=== PATIENT | female | born 1940 | race Caucasian/White ===

== ENCOUNTER → 2020-06-12 09:21 | Outpatient (CLI) | payer MEDICARE, SELFPAY ==
--- NOTE | ~2020-06-12 | MM_ITS ---
EXAMINATION: MM screening honorio BI w nini HISTORY: Screening TECHNIQUE: Craniocaudal and mediolateral oblique 3-D tomosynthesis images were obtained and synthetic 2-D images were generated. CAD analysis was submitted and interpreted. COMPARISON: Comparison to multiple prior studies sequentially, with oldest reviewed study dated 02/10. BREAST PARENCHYMAL COMPOSITION: There are scattered areas of fibroglandular density. FINDINGS: There is no evidence of suspicious mass, calcification, or architectural distortion to sugg est malignancy in either breast. There has been no suspicious interval change. IMPRESSION: 1. No mammographic evidence of malignancy. 2. Recommend routine screening mammography in one year. BI-RADS Category 1: Negative Reviewed, dictated and finalized at location A.
--- NOTE | ~2020-06-12 | DEXA_ITS ---
Bone Density Report Name: Mely Small Age: 79 Sex: Female Ethnicity: White Date of : 1940 Indication: osteopenia; height loss; postmenopausal Referring Provider: Yue Delgadillo Study: Bone densitometry was performed. Exam Date: June 12, 2020 Accession number: [id number] Bone Density: Region BMD T-score Z-score Classification AP Spine (L1-L4) 0.871 -1.6 1.0 Osteopenia Femoral Neck (Left) 0.670 -1.6 0.6 Osteopenia Total Hip (Left) 0.768 -1.4 0.5 Osteopenia Femoral Neck (Right) 0.687 -1.5 0.7 Osteopenia Total Hip (Right) 0.726 -1.8 0.2 Osteopenia Total Hip Mean 0.747 -1.6 0.4 Osteopenia World Health Organization criteria for BMD impression classify patients as: Normal (T-score at or above -1.0), Osteopenia (T-score between -1.0 and -2.5), or Osteoporosis (T-score at or below -2.5). 10-year Fracture Risk(1): Major Osteoporotic Fracture 12% Hip Fracture 3.0% Reported Risk Factors: [place] (), Neck BMD=0.670, BMI=22.4 (1) FRAX(R) Version 3.08. Fracture probability calculated for an untreated patient. Fracture probability may be lower if the patient has received treatment. Previous Exams: Region Exam Age BMD T-score BMD Change BMD Change Date g/cm2 vs Baseline vs Previous AP Spine(L1-L4) 06/12/2020 79 0.871 -1.6 0.014 0.014 12/28/2017 77 0.857 -1.7 Total Hip(Left) 06/12/2020 79 0.768 -1.4 -0.029* -0.029* 12/28/2017 77 0.796 -1.2 Total Hip(Right) 06/12/2020 79 0.726 -1.8 -0.051* -0.051* 12/28/2017 77 0.777 -1.4 *Denotes significance at 95% confidence level, LSC for AP Spine = 0.022 g/cm2, LSC for Total Hip = 0.027 g/cm2 Clinical Information Provided by Patient: Has used the following medications: Vitamin D, Calcium Patient maximum height was 62 Menopause Age: 59 No regular weight bearing exercise Drinks caffeinated beverages Onset of menses at age 13 Number of children 3 Impression: The patient has low bone mass, based on the Right Total Hip T-score. The patient has an estimated ten-year risk of hip fracture of 3% and an estimated ten-year risk of major fracture of 12%, based on the WHO FRAX algorithm. The BMD for the Total Hip(Left) decreased, changing by -0.029 since the last DXA exam. The BMD for the Total Hip(Right) decreased, changing by -0.051 since the last DXA exam. Discussion: BONE DENSITY IS LOW AT ONE OR MORE SKELETAL SITES. THE PA
== END ==
PROVIDERS: PCP Family Medicine; Visit Provider Nurse Practitioner
DX: Z12.31 Encounter for screening mammogram for malignant neoplasm of breast (principal); Z78.0 Asymptomatic menopausal state
CPT/HCPCS: 77063; 77067; 77080

== ENCOUNTER → 2021-08-04 14:13 | Outpatient (CLI) | payer MEDICARE, SELFPAY ==
--- NOTE | ~2021-08-04 | MM_ITS ---
EXAMINATION: MM screening honorio BI w nini HISTORY: Screening TECHNIQUE: Craniocaudal and mediolateral oblique 3-D tomosynthesis images were obtained and synthetic 2-D images were generated. CAD analysis was submitted and interpreted. COMPARISON: Comparison to multiple prior studies sequentially, with oldest reviewed study dated 02/10. BREAST PARENCHYMAL COMPOSITION: Breast composed of scattered areas of fibroglandular density FINDINGS: There is no evidence of suspicious mass, calcification, or architectural distortion to sugg est malignancy in either breast. There has been no suspicious interval change. IMPRESSION: 1. No mammographic evidence of malignancy. 2. Recommend routine screening mammography in one year. BI-RADS Category 1: Negative Reviewed, dictated and finalized at location A. SHOE EXAMINER
== END ==
PROVIDERS: PCP Family Medicine; Visit Provider Nurse Practitioner Family
DX: Z12.31 Encounter for screening mammogram for malignant neoplasm of breast (principal)
CPT/HCPCS: 77063; 77067

== ENCOUNTER 2022-05-05 08:52 | Outpatient (CLI) | payer MEDICARE, SELFPAY ==
[2022-05-05 19:42] LABS: Basophils Absolute Auto 0.1 K/mm3 (0.0-0.1); Basophils Percent Auto 1.2 % (0.2-1.2); Eosinophils Absolute Auto 0.1 K/mm3 (0-0.3); Hematocrit 37.1 % (37.0-47.0); Hemoglobin 10.9 g/dL (12.0-15.0); Immature Granulocyte Absolute 0.01 K/mm3 (0.00-0.031); Immature Granulocyte Percent A 0.2 % (0-0.5); Lymphocytes Absolute Auto 1.23 K/mm3 (0.9-3.2); Lymphocytes Percent Auto 24.2 % (18.3-44.2); Mean Corpuscular HGB Conc 29.4 g/dl (32-36); Mean Corpuscular Hemoglobin 23.1 pg (26-34); Mean Corpuscular Volume 78.6 fl (80-100); Mean Platelet Volume 10.6 fl (7.4-10.4); Monocytes Absolute Auto 0.4 K/mm3 (0.1-0.6); Monocytes Percent Auto 7.1 % (2.6-8.5); Neutrophils Absolute Auto 3.3 K/mm3 (1.3-6.7); Neutrophils Percent Auto 65.3 % (45.5-73.1); Platelet Count Result 311 k/mm3 (150-375); Red Blood Count 4.72 M/mm3 (4.2-5.4); Red Cell Distribution Width 16.9 % (11.5-14.5); White Blood Count 5.1 K/mm3 (4.5-10.0)
[2022-05-05 19:50] LABS: Hypochromasia 1+ (NORMAL); Platelet Estimate Adequate (Adequate)
[2022-05-05 19:51] LABS: Ovalocytes 1+ (NORMAL)
[2022-05-05 20:06] LABS: Vitamin D 25 Hydroxy 82.7 ng/mL
[2022-05-05 20:14] LABS: Alanine Aminotransferase 17 U/L (6-35); Albumin Level 4.3 g/dL (3.5-5.1); Alkaline Phosphatase 109 U/L (38-126); Anion Gap 12 mmol/L (8-16); Aspartate Amino Transferase 37 U/L (14-36); Bilirubin,Total 0.5 mg/dL (0.2-1.3); Blood Urea Nitrogen 19 mg/dL (7-17); Calcium 9.9 mg/dL (8.4-10.2); Carbon Dioxide 26 mmol/L (22-30); Chloride 102 mmol/L (98-107); Cholesterol 214 mg/dL (0-200); Estimated Glomerular Filt Rate > 60; Glucose 92 mg/dL (65-110); HDL Direct 73 mg/dL; Potassium 4.2 mmol/L (3.4-5.0); Sodium 140 mmol/L (137-145); Triglycerides 92 mg/dL (<150)
[2022-05-05 20:26] LABS: LDL Cholesterol Direct 89 mg/dL
== END 2022-05-05 08:53 | disposition home or self-care (01) ==
PROVIDERS: PCP Family Medicine; Visit Provider Nurse Practitioner Family
DX: E78.2 Mixed hyperlipidemia (principal); E78.5 Hyperlipidemia, unspecified; E55.9 Vitamin D deficiency, unspecified; Z00.00 Encounter for general adult medical examination without abnormal findings
CPT/HCPCS: 36415; 80053; 80061; 82306; 84443; 85025

== ENCOUNTER 2022-07-08 00:08 | Day surgery (SDC) | payer MEDICARE, SELFPAY ==
[2022-07-04 14:00] VITALS: BMI 19.9
[2022-07-08 07:39] VITALS: BP 113/62; PULSE 71; RESP 16; TEMP 36.2; O2SAT 100; BMI 19.6
[2022-07-08] MEDS: LACTATED RINGERS 1,000 ML 150 ML IV CONT (07:59)
--- NOTE | 2022-07-08 08:13 | PM.HPGS ---
History of Present Illness History of Present Illness Consent: Risks, benefits, and alternatives have been discussed and questions answered. Patient agrees to proceed with procedure. Chief complaint: hx colon polyps Narrative: Mely Small is a 82 year old female Presents for colonoscopy. She recently has had a 5-6 lb weight loss. She has a history of large colon polyp requiring partial colectomy 2009. She did have a follow-up colonoscopy 2014 with a polyp. She also has been treated for bladder cancer and lung cancer and squamous cell skin cancer. Patient presents today for colonoscopy. Review of Systems Review of Systems: Review of systems noncontributory. [facility] Past Medical History Medical History (Updated 07/08/22 @ 08:15 by Elvin Damian MD) Acute gangrenous cholecystitis Chronic fatigue History of adenocarcinoma of lung (~2016) Hx of bladder cancer (~2013) Mixed hyperlipidemia Neuropathy Obesity, unspecified (03/22/17) Osteopenia Postmenopausal Pulmonary nodule Thrombocytopenia Surgical History Surgical History (Updated 05/05/22 @ 08:25 by Jessica Moeller NP) Hx of cholecystectomy (~06/2019) Family History Family History Sibling Hypertension Family history of lung cancer Mother Family history of diabetes mellitus in first degree relative Diabetes mellitus Social History Social History Social History: -lives alone-3 children and 5 grandchildren. Smoking packs per day: 2 Smoking cigarettes per day: 40.0 Years smoked: 38 Smoking pack-years: 76.00 Smoking status: Never smoker Second hand tobacco smoke exposure: No Smoking end date: 08/28/01 Alcohol intake: never Substance use: never Substance use type: does not use Living arrangements: alone Gender identity (if verbalized by the patient): Female Sexual Orientation (if Verbalized by the Patient): Straight or Heterosexual Spiritual care concerns: No Agree to blood products: Yes Meds Home Medications and Allergies Home Medications Medication Instructions Recorded Confirmed Type aspirin 81 mg chewable tablet 81 mg PO DAILY 06/27/19 07/04/22 History (Aspirin Childrens) calcium carbonate 600 mg calcium 600 mg PO BID 06/27/19 07/04/22 History (1,500 mg) tablet cyanocobalamin (vitamin B-12) 1,000 mcg PO DAILY 06/27/19 07/04/22 History 1,000 mcg tablet cholecalciferol (vitamin D3) 125 125 mcg PO DAILY 10/22/20 07/04/22 History mcg (5,000 unit) capsule fish, borage, flaxseed oils-omega 1 cap PO BID 10/22/20 07/04/22 History 3,6,9 cb #1 400 mg-400 mg-400 mg cap albuterol sulfate 90 mcg/actuation 1 puff inhalation Q4H PRN wheezing 10/28/21 07/04/22 Rx aerosol inhaler (ProAir HFA) or chest tightness #8.5 grams pravastatin 20 mg tablet 20 mg PO DAILY #90 tabs 01/17/22 07/04/22 Rx sodium,potassium,mag sulfates 17.5 See Rx Instructions PO .COMPLEX 05/19/22 Rx gram-3.13 gram-1.6 gram oral soln #354 mL (Suprep Bowel Prep Kit) gabapentin 300 mg capsule 300 mg PO BID 07/04/22 07/04/22 History (Neurontin) Allergies Allergy/AdvReac Type Severity Reaction Status Date / Time atorvastatin Allergy Unknown N/V Verified 07/04/22 13:54 simvastatin Allergy Unknown n/v Verified 07/04/22 13:54 Vital Signs Vital Signs - 24 hr 07/08/22 07:39 Temperature 97.2 F L Pulse Rate 71 Respiratory Rate 16 Blood Pressure 113/62 Pulse Oximetry 100 Oxygen Delivery Room Air Exam Narrative: Physical exam reveals patient to be alert. Vital signs stable. HEENT exam is unremarkable. Patient is anicteric. Lungs are clear to auscultation and percussion. Heart is without murmur or extra sounds. Abdomen bowel sounds are present soft nontender with no organomegaly. Digital external rectal exam is normal. Assessment and Plan Assessment and plan (1) Hx of colectomy:
[2022-07-08 08:39] VITALS: BP 103/53; PULSE 84; RESP 16; O2SAT 97
[2022-07-08 08:49] VITALS: BP 114/65; PULSE 84; RESP 21; O2SAT 100
[2022-07-08 08:59] VITALS: BP 111/59; PULSE 74; RESP 20; O2SAT 100
== END 2022-07-08 09:13 | disposition home or self-care (01) ==
PROVIDERS: PCP Family Medicine; Visit Provider Internal Medicine Gastroenterology
PROC: 0DJD8ZZ Inspection of Lower Intestinal Tract, Via Natural or Artificial Opening Endoscopic (ICD-10-PCS; CPT 45378; principal; 2022-07-08 08:30)
DX: Z12.11 Encounter for screening for malignant neoplasm of colon (principal); K64.8 Other hemorrhoids; Z86.010 Personal history of colon polyps; Z98.0 Intestinal bypass and anastomosis status; Z90.49 Acquired absence of other specified parts of digestive tract; E78.2 Mixed hyperlipidemia; G62.9 Polyneuropathy, unspecified; M85.80 Other specified disorders of bone density and structure, unspecified site; Z85.51 Personal history of malignant neoplasm of bladder; Z85.118 Personal history of other malignant neoplasm of bronchus and lung; Z87.891 Personal history of nicotine dependence; Z79.82 Long term (current) use of aspirin; Z79.51 Long term (current) use of inhaled steroids
CPT/HCPCS: G0105; J2704; J7120

== ENCOUNTER → 2022-08-24 10:57 | Outpatient (CLI) | payer MEDICARE, SELFPAY ==
--- NOTE | ~2022-08-24 | MM_ITS ---
EXAMINATION: MM screening honorio BI w nini HISTORY: Screening mammogram TECHNIQUE: Craniocaudal and mediolateral oblique 3-D tomosynthesis images were obtained and synthetic 2-D images were generated. CAD analysis was submitted and interpreted. COMPARISON: 08/04/2021, 06/12/2020, 05/07/2019 bilateral screening mammogram examinations BREAST PARENCHYMAL COMPOSITION: The breasts are heterogeneously dense, which may obscure small masses . FINDINGS: There is no evidence of suspicious mass, calcification, or architectural distortion to sugg est malignancy in either breast. There has been no suspicious interval change. IMPRESSION: 1. No mammographic evidence of malignancy. 2. Recommend routine screening mammography in one year. BI-RADS Category 1: Negative Reviewed, dictated and finalized at location A. ILLMENT SPECIALIST
== END ==
PROVIDERS: PCP Family Medicine; Visit Provider Nurse Practitioner Family
DX: Z12.31 Encounter for screening mammogram for malignant neoplasm of breast (principal)
CPT/HCPCS: 77063; 77067

== ENCOUNTER → 2022-09-27 10:29 | Outpatient (CLI) | payer MEDICARE, SELFPAY ==
--- NOTE | ~2022-09-27 | DEXA_ITS ---
Bone Density Report Name: ELIUD FIELDS Age: 82 Sex: Female Ethnicity: White Date of : 1940 Indication: osteopenia; height loss; postmenopausal Referring Provider: Jessica Moeller Study: Bone densitometry was performed. Exam Date: September 27, 2022 Accession number: [id number] Bone Density: Region BMD T-score Z-score Classification AP Spine (L1-L4) 0.890 -1.4 1.3 Osteopenia Femoral Neck (Left) 0.631 -2.0 0.4 Osteopenia Total Hip (Left) 0.697 -2.0 0.1 Osteopenia Femoral Neck (Right) 0.581 -2.4 -0.1 Osteopenia Total Hip (Right) 0.621 -2.6 -0.6 Osteoporosis Total Hip Mean 0.659 -2.3 -0.3 Osteopenia World Health Organization criteria for BMD impression classify patients as: Normal (T-score at or above -1.0), Osteopenia (T-score between -1.0 and -2.5), or Osteoporosis (T-score at or below -2.5). 10-year Fracture Risk: FRAX not reported because: Some T-score for Spine Total or Hip Total or Femoral Neck at or below -2.5 Previous Exams: Region Exam Age BMD T-score BMD Change BMD Change Date g/cm2 vs Baseline vs Previous AP Spine(L1-L4) 09/27/2022 82 0.890 -1.4 0.033* 0.019 06/12/2020 79 0.871 -1.6 0.014 0.014 12/28/2017 77 0.857 -1.7 Total Hip(Left) 09/27/2022 82 0.697 -2.0 -0.099* -0.071* 06/12/2020 79 0.768 -1.4 -0.029* -0.029* 12/28/2017 77 0.796 -1.2 Total Hip(Right) 09/27/2022 82 0.621 -2.6 -0.156* -0.105* 06/12/2020 79 0.726 -1.8 -0.051* -0.051* 12/28/2017 77 0.777 -1.4 *Denotes significance at 95% confidence level, LSC for AP Spine = 0.022 g/cm2, LSC for Total Hip = 0.027 g/cm2 Clinical Information Provided by Patient: Has used the following medications: Vitamin D, Calcium Patient maximum height was 62 Menopause Age: 59 No regular weight bearing exercise Drinks caffeinated beverages Onset of menses at age 13 Number of children 2 Impression: The patient has osteoporosis, based on the Right Total Hip T-score. The BMD for the Total Hip(Left) decreased, changing by -0.071 since the last DXA exam. The BMD for the Total Hip(Right) decreased, changing by -0.105 since the last DXA exam. Discussion: INCREASED RISK OF FRACTURE. BONE DENSITY IS UNDESIRABLY LOW AT ONE OR MORE SKELETAL SITES, CONSISTENT WITH POSTMENOPAUSAL OSTEOPOROSIS. This patient's lowest T-score meets the World Health Organization's (WHO) crite
== END ==
PROVIDERS: PCP Family Medicine; Visit Provider Nurse Practitioner Family
DX: Z78.0 Asymptomatic menopausal state (principal); M85.89 Other specified disorders of bone density and structure, multiple sites; M81.0 Age-related osteoporosis without current pathological fracture
CPT/HCPCS: 77080

== ENCOUNTER 2022-11-03 08:34 | Outpatient (CLI) | payer MEDICARE, SELFPAY ==
[2022-11-03 20:42] LABS: Basophils Percent Auto 0.6 % (0.2-1.2); Eosinophils Absolute Auto 0.1 K/mm3 (0-0.3); Eosinophils Percent Auto 1.6 % (0-4.4); Hematocrit 37.4 % (37.0-47.0); Hemoglobin 11.2 g/dL (12.0-15.0); Immature Granulocyte Absolute 0.03 K/mm3 (0.00-0.031); Immature Granulocyte Percent A 0.4 % (0-0.5); Lymphocytes Percent Auto 15.6 % (18.3-44.2); Mean Corpuscular HGB Conc 29.9 g/dl (32-36); Mean Corpuscular Hemoglobin 23.4 pg (26-34); Mean Corpuscular Volume 78.1 fl (80-100); Mean Platelet Volume 10.4 fl (7.4-10.4); Monocytes Absolute Auto 0.4 K/mm3 (0.1-0.6); Monocytes Percent Auto 6.1 % (2.6-8.5); Neutrophils Absolute Auto 5.4 K/mm3 (1.3-6.7); Neutrophils Percent Auto 75.7 % (45.5-73.1); Platelet Count Result 294 k/mm3 (150-375); Red Blood Count 4.79 M/mm3 (4.2-5.4); Red Cell Distribution Width 16.8 % (11.5-14.5); White Blood Count 7.1 K/mm3 (4.5-10.0)
[2022-11-03 20:58] LABS: LDL Cholesterol Direct 84 mg/dL
[2022-11-03 21:00] LABS: Hypochromasia 1+ (NORMAL); Platelet Estimate Adequate (Adequate)
[2022-11-03 21:01] LABS: Ovalocytes 2+ (NORMAL); Schistocytes None Seen (NORMAL)
[2022-11-03 21:08] LABS: Alanine Aminotransferase 17 U/L (6-35); Albumin Level 4.3 g/dL (3.5-5.1); Alkaline Phosphatase 151 U/L (38-126); Anion Gap 5 mmol/L (8-16); Aspartate Amino Transferase 39 U/L (14-36); Bilirubin,Total 0.4 mg/dL (0.2-1.3); Blood Urea Nitrogen 24 mg/dL (7-17); Calcium 9.7 mg/dL (8.4-10.2); Carbon Dioxide 30 mmol/L (22-30); Chloride 101 mmol/L (98-107); Cholesterol 185 mg/dL (0-200); Estimated Glomerular Filt Rate > 60; Glucose 86 mg/dL (65-110); HDL Direct 72 mg/dL; Potassium 4.5 mmol/L (3.4-5.0); Sodium 136 mmol/L (137-145); Triglycerides 57 mg/dL (<150)
== END 2022-11-03 08:35 | disposition home or self-care (01) ==
LOC: ANHGOSHLAB 08:36
PROVIDERS: PCP Family Medicine; Visit Provider Nurse Practitioner Family
DX: E78.5 Hyperlipidemia, unspecified (principal); I10 Essential (primary) hypertension
CPT/HCPCS: 36415; 80053; 80061; 85025

== ENCOUNTER 2023-01-27 20:11 | Emergency (ER) | payer MEDICARE, SELFPAY ==
[2023-01-27] VITALS (13 sets, daily range): BP systolic 106–144; BP diastolic 64–88; PULSE 98; RESP 18; TEMP 36.6; O2SAT 96–100
[2023-01-27 21:08] LABS: Basophils Percent Auto 0.3 % (0.2-1.2); Hematocrit 36.3 % (37.0-47.0); Hemoglobin 10.6 g/dL (12.0-15.0); Immature Granulocyte Absolute 0.03 K/mm3 (0.00-0.031); Immature Granulocyte Percent A 0.4 % (0-0.5); Lymphocytes Percent Auto 6.3 % (18.3-44.2); Mean Corpuscular HGB Conc 29.2 g/dl (32-36); Mean Corpuscular Hemoglobin 22.7 pg (26-34); Mean Corpuscular Volume 77.9 fl (80-100); Mean Platelet Volume 10.2 fl (7.4-10.4); Monocytes Absolute Auto 0.2 K/mm3 (0.1-0.6); Monocytes Percent Auto 2.7 % (2.6-8.5); Neutrophils Absolute Auto 7.2 K/mm3 (1.3-6.7); Neutrophils Percent Auto 90.3 % (45.5-73.1); Platelet Count Result 281 k/mm3 (150-375); Red Blood Count 4.66 M/mm3 (4.2-5.4); Red Cell Distribution Width 16.2 % (11.5-14.5); White Blood Count 7.9 K/mm3 (4.5-10.0)
[2023-01-27 21:32] LABS: Alanine Aminotransferase 19 U/L (6-35); Albumin Level 4.5 g/dL (3.5-5.1); Alkaline Phosphatase 98 U/L (38-126); Anion Gap 10 mmol/L (8-16); Aspartate Amino Transferase 28 U/L (14-36); Bilirubin,Total 0.5 mg/dL (0.2-1.3); Blood Urea Nitrogen 16 mg/dL (7-17); Carbon Dioxide 26 mmol/L (22-30); Chloride 101 mmol/L (98-107); Estimated CRCL calculation 37 ml/min; Estimated Glomerular Filt Rate > 60; Glucose 161 mg/dL (65-110); Lipase 41 U/L (23-300); Potassium 4.3 mmol/L (3.4-5.0); Sodium 137 mmol/L (137-145)
[2023-01-27 21:58] LABS: Platelet Estimate Adequate (Adequate)
[2023-01-27 21:59] LABS: Hypochromasia 1+ (NORMAL); Schistocytes None Seen (NORMAL)
[2023-01-27 22:00] LABS: Anisocytosis 2+ (NORMAL)
[2023-01-27] MEDS: ONDANSETRON INJ 4 MG/2 ML VIAL IV PUSH (22:13)
[2023-01-27] MEDS: SODIUM CHLORIDE 0.9% IV 1,000 ML 999 ML IV CONT (22:13)
[2023-01-27 22:48] LABS: Magnesium 2.2 mg/dL (1.6-2.3)
[2023-01-27 22:50] LABS: Lactic Acid Reflex 0.9 mmol/L (0.7-2.0)
[2023-01-27 23:03] LABS: Strep Group A RT-PCR NOT DETECTED (Negative)
[2023-01-27 23:14] LABS: Influenza A QL RT-PCR Negative (Negative); Influenza B QL RT-PCR Negative (Negative); SARS-CoV-2 RNA PCR Negative (Negative)
--- NOTE | 2023-01-27 23:19 | PC.NURSE ---
This RN assumed care of patient.
[2023-01-27 23:35] LABS: Appearance Urine Cloudy (Clear); Bacteria Urine 4+ /hpf; Bilirubin Urine Negative (Negative); Blood Urine 1+ (Negative); Color Urine Yellow (Yellow); Glucose Urine UA Negative (Negative); Ketones Urine 2+ mg/dL (Negative); Leukocyte Esterase Ur 3+ LEU/UL (Negative); Nitrate Urine Positive (Negative); Protein Urine Trace mg/dL (Negative); RBC Urine 0-2 /hpf (0-2); Specific Grav Ur 1.015 (1.001-1.035); Squamous Epithelial Cell Urine Occasional /hpf (Few); Urobilinogen Urine 0.2 mg/dL (<2.0); WBC Urine >100 /hpf; pH Urine 6.5 (5.0-9.0)
[2023-01-27 23:50] LABS: Add Urine Microscopic? YES
--- NOTE | 2023-01-28 00:30 | ED.GENADULT ---
HPI - General Adult General Chief complaint: Nausea/Vomiting/Diarrhea Stated complaint: nausea/vomiting x 2 days, weakness Time Seen by Provider: 01/27/23 21:55 History of Present Illness HPI narrative: Patient is a 82-year-old female who presents the emergency department with chief complaint of nausea and vomiting for 2 days. Patient states that she feels extremely dehydrated and feels very weak afterwards. The patient denies any abdominal pain denies diarrhea reports that her abdomen is not distended and reports that she was given a dose of Zofran that did help some but she still had some vomiting. The patient states that she feels exhausted from all the vomiting denies fever denies any new medications denies any recent travel or recent antibiotic. Related Data Home Medications Medication Instructions Recorded Confirmed aspirin 81 mg chewable tablet 81 mg PO DAILY 06/27/19 11/03/22 (Aspirin Childrens) calcium carbonate 600 mg calcium 600 mg PO BID 06/27/19 11/03/22 (1,500 mg) tablet cyanocobalamin (vitamin B-12) 1,000 mcg PO DAILY 06/27/19 11/03/22 1,000 mcg tablet cholecalciferol (vitamin D3) 125 125 mcg PO DAILY 10/22/20 11/03/22 mcg (5,000 unit) capsule fish, borage, flaxseed oils-omega 1 cap PO BID 10/22/20 11/03/22 3,6,9 cb #1 400 mg-400 mg-400 mg cap Allergies Allergy/AdvReac Type Severity Reaction Status Date / Time atorvastatin Allergy Unknown N/V Verified 01/27/23 20:12 simvastatin Allergy Unknown n/v Verified 01/27/23 20:12 Review of Systems Review of Systems: A 10 system review of systems was completed on the patient and is negative except for what is stated in the HPI. Nursing and ancillary documentation was reviewed. [facility] Past Medical History Medical History Acute gangrenous cholecystitis Chronic fatigue History of adenocarcinoma of lung (~2016) Hx of bladder cancer (~2013) Mixed hyperlipidemia Neuropathy Obesity, unspecified (03/22/17) Osteopenia Osteoporosis Postmenopausal Pulmonary nodule Thrombocytopenia Surgical History Surgical History Hx of cholecystectomy (~06/2019) Family History Family History Sibling Hypertension Family history of lung cancer Mother Family history of diabetes mellitus in first degree relative Diabetes mellitus Social History Social History Social History: -lives alone-3 children and 5 grandchildren. Smoking packs per day: 2 Smoking cigarettes per day: 40.0 Years smoked: 38 Smoking pack-years: 76.00 Smoking status: Never smoker Second hand tobacco smoke exposure: No Smoking end date: 08/28/01 Alcohol intake: never Substance use: never Substance use type: does not use Lack of Transportation: No Lack of Food: Never True Current Housing: I Have Housing Concerned About Future Housing: No Difficulty Paying Gas/Electric Bills: No Difficulty Paying for Meds: No Currently Unemployed: No Education: High School Diploma/GED Difficulty w/ Childcare or Family Care: No Living arrangements: alone Occupation/Education: retired Gender identity (if verbalized by the patient): Female Sexual Orientation (if Verbalized by the Patient): Straight or Heterosexual Spiritual care concerns: No Agree to blood products: Yes Exam Narrative: GENERAL: Well-appearing, well-nourished, and in no acute distress. HEAD: Normocephalic, atraumatic. EYES: PERRLA and EOMI. ENT: Nares clear, no rhinorrhea or epistaxis. Dry mucous membranes . NECK: Supple. CHEST: Clear to auscultation. No respiratory distress. HEART: Regular rate and rhythm. No murmur heard. Normal peripheral pulses. ABDOMEN: Soft, nontender, nondistended, normal active bowel sounds. EXTRE
[2023-01-28] MEDS: ONDANSETRON INJ 4 MG/2 ML VIAL IV PUSH (00:41)
[2023-01-28] MEDS: CEPHALEXIN 500 MG CAPSULE PO (00:41)
== END 2023-01-28 01:06 | disposition home or self-care (01) ==
PROVIDERS: Emergency Provider Emergency Medicine; PCP Family Medicine
DX: N39.0 Urinary tract infection, site not specified (principal); R11.2 Nausea with vomiting, unspecified; Z20.822 Contact with and (suspected) exposure to COVID-19; E78.2 Mixed hyperlipidemia; G62.9 Polyneuropathy, unspecified; M85.80 Other specified disorders of bone density and structure, unspecified site; M81.0 Age-related osteoporosis without current pathological fracture; Z85.118 Personal history of other malignant neoplasm of bronchus and lung; Z85.51 Personal history of malignant neoplasm of bladder; Z90.49 Acquired absence of other specified parts of digestive tract; Z87.891 Personal history of nicotine dependence
CPT/HCPCS: 36415; 80053; 81001; 83605; 83690; 83735; 85025; 87077; 87086; 87186; 87636; 87651; 96361; 96374; 96376; 99284; A9270; J2405; J7030

== ENCOUNTER 2023-01-28 19:10 | Emergency (ER) | payer MEDICARE, SELFPAY ==
[2023-01-28] VITALS (11 sets, daily range): BP systolic 127–141; BP diastolic 66–81; PULSE 75–85; RESP 12–19; TEMP 36.3–36.7; O2SAT 96–100
[2023-01-28] MEDS: methylPREDNISolone SOD SUCC 125 MG VIAL IV PUSH (20:24)
[2023-01-28] MEDS: diphenhydrAMINE HCl INJ 50 MG/ML VIAL 25 MG IV PUSH (20:26)
[2023-01-28] MEDS: FAMOTIDINE 20 MG/2 ML VIAL IV PUSH (20:27)
--- NOTE | 2023-01-28 22:13 | ED.GENADULT ---
HPI - General Adult General Chief complaint: Allergic Reaction Stated complaint: allergic reaction Time Seen by Provider: 01/28/23 19:54 History of Present Illness HPI narrative: Patient 82-year-old female who presents the emergency department with chief complaint of allergic reaction. Patient was seen in the emergency department last night for nausea vomiting diarrhea and was found to have a UTI. The patient was started on oral Keflex he was also given a prescription for Phenergan suppositories. Patient states that today she has felt a little nauseated and then had took her dose of antibiotic and when she took a dose of antibiotic she noticed that she developed a rash in the left side of her face and reported that she felt as though her throat was getting Related Data Home Medications Medication Instructions Recorded Confirmed aspirin 81 mg chewable tablet 81 mg PO DAILY 06/27/19 11/03/22 (Aspirin Childrens) calcium carbonate 600 mg calcium 600 mg PO BID 06/27/19 11/03/22 (1,500 mg) tablet cyanocobalamin (vitamin B-12) 1,000 mcg PO DAILY 06/27/19 11/03/22 1,000 mcg tablet cholecalciferol (vitamin D3) 125 125 mcg PO DAILY 10/22/20 11/03/22 mcg (5,000 unit) capsule fish, borage, flaxseed oils-omega 1 cap PO BID 10/22/20 11/03/22 3,6,9 cb #1 400 mg-400 mg-400 mg cap Allergies Allergy/AdvReac Type Severity Reaction Status Date / Time atorvastatin Allergy Unknown N/V Verified 01/27/23 20:12 simvastatin Allergy Unknown n/v Verified 01/27/23 20:12 Review of Systems Review of Systems: A 10 system review of systems was completed on the patient and is negative except for what is stated in the HPI. Nursing and ancillary documentation was reviewed. [facility] Past Medical History Medical History Acute gangrenous cholecystitis Chronic fatigue History of adenocarcinoma of lung (~2016) Hx of bladder cancer (~2013) Mixed hyperlipidemia Neuropathy Obesity, unspecified (03/22/17) Osteopenia Osteoporosis Postmenopausal Pulmonary nodule Thrombocytopenia Surgical History Surgical History Hx of cholecystectomy (~06/2019) Family History Family History Sibling Hypertension Family history of lung cancer Mother Family history of diabetes mellitus in first degree relative Diabetes mellitus Social History Social History Social History: -lives alone-3 children and 5 grandchildren. Smoking packs per day: 2 Smoking cigarettes per day: 40.0 Years smoked: 38 Smoking pack-years: 76.00 Smoking status: Never smoker Second hand tobacco smoke exposure: No Smoking end date: 08/28/01 Alcohol intake: never Substance use: never Substance use type: does not use Lack of Transportation: No Lack of Food: Never True Current Housing: I Have Housing Concerned About Future Housing: No Difficulty Paying Gas/Electric Bills: No Difficulty Paying for Meds: No Currently Unemployed: No Education: High School Diploma/GED Difficulty w/ Childcare or Family Care: No Living arrangements: alone Occupation/Education: retired Gender identity (if verbalized by the patient): Female Sexual Orientation (if Verbalized by the Patient): Straight or Heterosexual Spiritual care concerns: No Agree to blood products: Yes Exam Narrative: GENERAL: Well-appearing, well-nourished, and in no acute distress. HEAD: Normocephalic, atraumatic. EYES: PERRLA and EOMI. ENT: Nares clear, no rhinorrhea or epistaxis. Mucous membranes moist. NECK: Supple. CHEST: Clear to auscultation. No respiratory distress. HEART: Regular rate and rhythm. No murmur heard. Normal peripheral pulses. ABDOMEN: Soft, nontender, nondistended, normal active bowel sounds.
== END 2023-01-28 22:47 | disposition home or self-care (01) ==
PROVIDERS: Emergency Provider Emergency Medicine; PCP Family Medicine
DX: T78.40XA Allergy, unspecified, initial encounter (principal); N39.0 Urinary tract infection, site not specified; E78.2 Mixed hyperlipidemia; M81.0 Age-related osteoporosis without current pathological fracture; G62.9 Polyneuropathy, unspecified; Z85.51 Personal history of malignant neoplasm of bladder; Z85.118 Personal history of other malignant neoplasm of bronchus and lung; Z87.891 Personal history of nicotine dependence; Z79.82 Long term (current) use of aspirin
CPT/HCPCS: 96374; 96375; 96376; 99284; A9270; J1200; J2405; J2930

== ENCOUNTER 2023-05-11 08:23 | Outpatient (CLI) | payer MEDICARE, SELFPAY ==
[2023-05-11 11:40] LABS: Basophils Absolute Auto 0.1 K/mm3 (0.0-0.1); Basophils Percent Auto 0.8 % (0.2-1.2); Eosinophils Absolute Auto 0.1 K/mm3 (0-0.3); Hematocrit 35.1 % (37.0-47.0); Hemoglobin 10.3 g/dL (12.0-15.0); Immature Granulocyte Absolute 0.02 K/mm3 (0.00-0.031); Immature Granulocyte Percent A 0.3 % (0-0.5); Lymphocytes Absolute Auto 0.39 K/mm3 (0.9-3.2); Lymphocytes Percent Auto 6.3 % (18.3-44.2); Mean Corpuscular HGB Conc 29.3 g/dl (32-36); Mean Corpuscular Hemoglobin 22.3 pg (26-34); Mean Corpuscular Volume 76.1 fl (80-100); Mean Platelet Volume 10.5 fl (7.4-10.4); Monocytes Absolute Auto 0.5 K/mm3 (0.1-0.6); Monocytes Percent Auto 7.6 % (2.6-8.5); Neutrophils Absolute Auto 5.2 K/mm3 (1.3-6.7); Platelet Count Result 231 k/mm3 (150-375); Red Blood Count 4.61 M/mm3 (4.2-5.4); Red Cell Distribution Width 16.4 % (11.5-14.5); White Blood Count 6.2 K/mm3 (4.5-10.0)
[2023-05-11 11:47] LABS: Alanine Aminotransferase 16 U/L (6-35); Albumin Level 4.1 g/dL (3.5-5.1); Alkaline Phosphatase 67 U/L (38-126); Anion Gap 7 mmol/L (8-16); Aspartate Amino Transferase 43 U/L (14-36); Bilirubin,Total 0.8 mg/dL (0.2-1.3); Blood Urea Nitrogen 21 mg/dL (7-17); Calcium 9.3 mg/dL (8.4-10.2); Carbon Dioxide 27 mmol/L (22-30); Chloride 102 mmol/L (98-107); Cholesterol 202 mg/dL (0-200); Estimated Glomerular Filt Rate > 60; Glucose 94 mg/dL (65-110); HDL Direct 74 mg/dL; Potassium 4.4 mmol/L (3.4-5.0); Sodium 136 mmol/L (137-145); Triglycerides 66 mg/dL (<150)
[2023-05-11 11:58] LABS: LDL Cholesterol Direct 96 mg/dL
[2023-05-11 14:28] LABS: Vitamin D 25 Hydroxy 92.5 ng/mL
== END 2023-05-11 08:24 | disposition home or self-care (01) ==
PROVIDERS: PCP Family Medicine; Visit Provider Nurse Practitioner Family
DX: I10 Essential (primary) hypertension (principal); Z13.29 Encounter for screening for other suspected endocrine disorder; D69.6 Thrombocytopenia, unspecified; Z13.21 Encounter for screening for nutritional disorder; Z13.220 Encounter for screening for lipoid disorders
CPT/HCPCS: 36415; 80053; 80061; 82306; 84443; 85025

== ENCOUNTER 2023-11-09 08:35 | Outpatient (CLI) | payer MEDICARE, SELFPAY ==
[2023-11-09 12:49] LABS: Basophils Percent Auto 0.7 % (0.2-1.2); Eosinophils Absolute Auto 0.2 K/mm3 (0-0.3); Eosinophils Percent Auto 3.1 % (0-4.4); Hematocrit 41.8 % (37.0-47.0); Immature Granulocyte Absolute 0.02 K/mm3 (0.00-0.031); Immature Granulocyte Percent A 0.4 % (0-0.5); Lymphocytes Absolute Auto 1.09 K/mm3 (0.9-3.2); Lymphocytes Percent Auto 19.9 % (18.3-44.2); Mean Corpuscular HGB Conc 31.1 g/dl (32-36); Mean Corpuscular Hemoglobin 27.8 pg (26-34); Mean Corpuscular Volume 89.5 fl (80-100); Mean Platelet Volume 10.8 fl (7.4-10.4); Monocytes Absolute Auto 0.5 K/mm3 (0.1-0.6); Monocytes Percent Auto 8.4 % (2.6-8.5); Neutrophils Absolute Auto 3.7 K/mm3 (1.3-6.7); Neutrophils Percent Auto 67.5 % (45.5-73.1); Platelet Count Result 199 k/mm3 (150-375); Red Blood Count 4.67 M/mm3 (4.2-5.4); Red Cell Distribution Width 13.8 % (11.5-14.5); White Blood Count 5.5 K/mm3 (4.5-10.0)
[2023-11-09 12:52] LABS: Alanine Aminotransferase 20 U/L (6-35); Alkaline Phosphatase 82 U/L (38-126); Anion Gap 1 mmol/L (8-16); Aspartate Amino Transferase 50 U/L (14-36); Bilirubin,Total 0.6 mg/dL (0.2-1.3); Blood Urea Nitrogen 17 mg/dL (7-17); Calcium 9.6 mg/dL (8.4-10.2); Carbon Dioxide 33 mmol/L (22-30); Chloride 104 mmol/L (98-107); Cholesterol 180 mg/dL (0-200); Estimated Glomerular Filt Rate > 60; Glucose 87 mg/dL (65-110); HDL Direct 73 mg/dL; Potassium 4.1 mmol/L (3.4-5.0); Sodium 138 mmol/L (137-145); Triglycerides 68 mg/dL (<150)
[2023-11-09 13:03] LABS: LDL Cholesterol Direct 92 mg/dL
[2023-11-09 13:34] LABS: Hemoglobin A1C 5.8 % (<5.7)
== END 2023-11-09 08:36 | disposition home or self-care (01) ==
LOC: ANHGOSHLAB 08:38
PROVIDERS: PCP Family Medicine; Visit Provider Nurse Practitioner Family
DX: R73.03 Prediabetes (principal); D69.6 Thrombocytopenia, unspecified; E78.5 Hyperlipidemia, unspecified
CPT/HCPCS: 36415; 80053; 80061; 83036; 85025

== ENCOUNTER 2024-05-10 09:33 | Outpatient (CLI) | payer MEDICARE, SELFPAY ==
[2024-05-10 15:38] LABS: Basophils Percent Auto 0.8 % (0.2-1.2); Eosinophils Absolute Auto 0.1 K/mm3 (0-0.3); Eosinophils Percent Auto 2.8 % (0-4.4); Hematocrit 40.3 % (37.0-47.0); Hemoglobin 12.8 g/dL (12.0-15.0); Immature Granulocyte Absolute 0.01 K/mm3 (0.00-0.031); Immature Granulocyte Percent A 0.2 % (0-0.5); Lymphocytes Absolute Auto 1.07 K/mm3 (0.9-3.2); Lymphocytes Percent Auto 21.1 % (18.3-44.2); Mean Corpuscular HGB Conc 31.8 g/dl (32-36); Mean Corpuscular Hemoglobin 28.7 pg (26-34); Mean Corpuscular Volume 90.4 fl (80-100); Mean Platelet Volume 11.1 fl (7.4-10.4); Monocytes Absolute Auto 0.4 K/mm3 (0.1-0.6); Monocytes Percent Auto 8.7 % (2.6-8.5); Neutrophils Absolute Auto 3.4 K/mm3 (1.3-6.7); Neutrophils Percent Auto 66.4 % (45.5-73.1); Platelet Count Result 183 k/mm3 (150-375); Red Blood Count 4.46 M/mm3 (4.2-5.4); Red Cell Distribution Width 13.6 % (11.5-14.5); White Blood Count 5.1 K/mm3 (4.5-10.0)
[2024-05-10 15:56] LABS: Hemoglobin A1C 5.8 % (<5.7)
[2024-05-10 16:13] LABS: Vitamin D 25 Hydroxy 69.7 ng/mL
[2024-05-10 16:19] LABS: Alanine Aminotransferase 15 U/L (6-35); Albumin Level 4.1 g/dL (3.5-5.1); Alkaline Phosphatase 94 U/L (38-126); Anion Gap 7 mmol/L (4-12); Aspartate Amino Transferase 49 U/L (14-36); Bilirubin,Total 0.5 mg/dL (0.2-1.3); Blood Urea Nitrogen 25 mg/dL (7-17); Calcium 9.3 mg/dL (8.4-10.2); Carbon Dioxide 31 mmol/L (22-30); Chloride 101 mmol/L (98-107); Cholesterol 178 mg/dL (0-200); Estimated Glomerular Filt Rate > 60; Glucose 87 mg/dL (65-110); HDL Direct 76 mg/dL; Potassium 4.3 mmol/L (3.4-5.0); Sodium 139 mmol/L (137-145); Triglycerides 52 mg/dL (<150)
[2024-05-10 16:33] LABS: LDL Cholesterol Direct 83 mg/dL
== END 2024-05-10 09:34 | disposition home or self-care (01) ==
PROVIDERS: PCP Family Medicine; Visit Provider Nurse Practitioner Family
DX: R73.03 Prediabetes (principal); E78.2 Mixed hyperlipidemia; E55.9 Vitamin D deficiency, unspecified
CPT/HCPCS: 36415; 80053; 80061; 82306; 83036; 85025

== ENCOUNTER 2024-11-08 09:16 | Outpatient (CLI) | payer MEDICARE, SELFPAY ==
--- OUTSIDE RECORDS SUMMARY | 2024-11-08 09:47 | XMS_ITS | Encounter Summary ---
Author Organization [facility] Address [address] [place] [address] Care Team Providers Care Six Horse Hitch Driver Name Role Phone Valery Walter MD Primary Care Provider Unavail able Encounter Details Date Type Department Care Team (Late st Contact Info) Description 12/03/2007 Orders Only [facility] Family Medicine [facility] [address] [address] [address] [place] [address] Paige Prado MD [address] [place] [id number] Social History Tobacco Use Types Packs/Day Years Used Date Smoking Tobacco: Never Assessed Comments Unknown Sex and Gender Information Value Date Recorded Sex Assigned at Not on file 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 [employer] Gender Identity Not on file Sexual Orientation Not on file documented as of this encounter Progress Notes * Paige Prado MD - 02/01/2008 9:34 AM CDT TIME:09:42 am PATIENT`S HOME PHONE: PATIENT`S WORK PHONE: PATIENT`S INSURANCE: MEDICARE WHO TOOK THE CALL: Brigitte Diaz L GENERAL INFORMATION PATIENT STATUS: Established Patient. LAST VISIT: [id number] PCP: WHO CALLED: Patient called. ALTERNATIVE PHONE NUMBER: [phone] CURRENT ALLERGY LIST: [facility] NUMBER: [phone] SECTION 1: REQUESTED ACTION pruivl 12/03/07 at 09:42 am: MEDICATION REQUEST: MEDICATIONS: pt would like generic, pt is leaving and would like this refilled before 1100am please, she is going out of town PRAVACHOL ORAL TABLET 40 MG, one tab po qday, 30 Dispensed, 5 Fills, 30 Duration/Days Supply, status: CONTINUED, 11/26/2007. DOCTOR`S RESPONSE: khris 12/03/07 at 09:47 am DOCTOR`S OTHER RESPONSE: I do not know this patient. FINAL ACTION: lohajd 12/03/07 at 09:53 am Called pharmacy at 12/03/07 at 09:53 am. Eve pt. Refill called into pharm. Pt advised she had refills...mery 12/03/07 at 12:05 Brown covering for Eve. Above noted. Will leave note open for Dr. Prado's review. DB documented in this encounter Plan of Treatment Not on file documented as of this encounter Visit Diagnoses Not on filedocumented in this encounter Care Teams Six Horse Hitch Driver Relationship Specialty Start Date End Date Valery Walter MD NO ADDRESS ON FILE PCP - General 05/26/06 08/05/19 documented as of this encounter
--- OUTSIDE RECORDS SUMMARY | 2024-11-08 09:47 | XMS_ITS | Referral Summary ---
Author Organization [facility] [place] Address [address] [place] [address] Care Team Providers Care Gas Well Drilling Manager Name Role Phone Anamika South NP Primary Care Provider + Allergies Active Allergy Reactions Criticality Noted Date Comments Atorvastatin Vomiting,Nausea And Vomiting Low 02/18 Simvastatin Nausea & Vomiting,Nausea And Vomiting Low 02/18/2009 Medications Rb-N3-nhh-zinc-co y-tyhl-psjdv 600 mg calcium- 800 unit-40 mg tablet,chewable 2 times a day Active clobetasol (TEMOVATE) 0.05 % cream 2 (two) times a day as needed. Active flaxseed oil 1,000 mg capsule 2 (two) times a day. Active gabapentin (NEURONTIN) 300 mg capsuleIndication s:Neuropathic Pain 1 capsule (300 mg total) nightly 0 01/30/20 18 Active gabapentin (NEURONTIN) 100 mg capsule TAKE 1 CAPSULE in the morning for pain Active omega-3 fatty acids-fish oil 684-1,200 mg capsule,delayed release(DR/EC) [place] 3, 6, 9 BID for supplement Active pravastatin (PRAVACHOL) 20 mg tabletIndications :hyperlipidemia 1 tablet (20 mg total) nightly 1 01/30/20 18 Active riboflavin, vitamin B2, 50 mg tablet nightly. Active cholecalciferol (VITAMIN D-3) 2,000 unit tabletIndications :Osteoporosis nightly. Active ipratropium-albut miguel (COMBIVENT RESPIMAT) 20-100 mcg/actuation inhalerIndication s:Chronic Obstructive Pulmonary Disease with Bronchospasms Inhale 1 puff 4 (four) times a day. 4 g 1 02/24/20 18 Active Additional Information Patient not taking.Reported on 12/11/2020 aspirin 81 mg tabletIndications :prevention of thrombosis Take 1 tablet (81 mg total) by mouth nightly Active acetaminophen 500 mg capsuleIndication s:Pain Take 2 capsules (1,000 mg total) by mouth every 6 (six) hours. 30 tablet 03/09/20 18 Active traMADol (ULTRAM) 50 mg tablet Take 1 tablet (50 mg total) by mouth every 6 (six) hours as needed for pain. 03/09/20 18 Active Additional Information Patient not taking.Reported on 12/09/2022 polyethylene glycol (MIRALAX) 17 gram packet Take 1 packet (17 g total) by mouth daily. This medication can be found over the counter, please follow the instructions listed on the packaging. 03/10/20 18 Active Additional Information Patient not taking.Reported on 12/09/2022 senna-docusate (PERICOLACE) 8.6-50 mg Take 1 tablet by mouth 2 (two) times a day. Until first bowel movement, or until pain medication is stopped. 03/09/20 18 Active Additional Information Patient not taking.Reported on 12/09/2022 cyanocobalamin, vitamin B-12, (VITAMIN B-12 ORAL) Take by mouth daily. Active aspirin-calcium carbonate 81 mg-300 mg calcium(777 mg) tablet Take 81 mg by mouth. Active ciprofloxacin (CIPRO) 500 mg tablet 0 06/29/20 18 Active LIEOL-3S-TLF-EPA- FISH OIL-D3 ORAL Take by mouth. Active albuterol HFA (PROVENTIL HFA,VENTOLIN HFA,PROAIR HFA) 90 mcg/actuation inhaler 10/29/19 22 Active alendronate (FOSAMAX) 70 mg tablet Take 1 tablet (70 mg total) by mouth once a week 09/29/19 23 Active Active Problems Problem Noted Date Diagnosed Date Mass of upper lobe of right lung 03/01/2018 Overview (03/01/2018): Added automatically from request for surgery [id number] Lung cancer 02/20/2018 Choledocholithiasis 01/08/2018 Abnormal findings on imaging of biliary tract Abnormal findings on diagnos tic imaging of liver and biliary tract 06/29/2017 Malignant neoplasm of urinary bladder 03/03/2014 Hematuria 03/03/2014 Social History Tobacco Use Types Packs/Day Years Used Date Smoking Tobacco: Former Cigarettes 2 38 0 08/28/1961 - 08/28/1999 Smokeless Tobacco: Never Alcohol Use Standard Drinks/Week Comments Yes 0 (1 standard drink = 0.6 oz pur e alcohol) Occassional glass of wine. 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 Gender Identity Female 12/09/2020 1:34 PM CDT Sexual Orientation Straight 12/09/2020 1 :34 PM CDT Last Filed Vital Signs Vital Sign Reading Time Taken Comments Blood Pressure 117/72 12/09/2022 8:41 AM CDT Pulse 85 12/09/2022 8:41 AM CDT Temperature 36.4 C (97.6 F) 12/09/2022 8:41 AM CDT Respiratory Rate 18 12/09/2022 8:41 AM CDT Oxygen Saturation 98% 12/09/2022 8:41 AM CDT Inhaled Oxygen Concentration - - Weight 46.4 kg (102 lb 3.2 oz) 12/09/2022 8:41 A M CDT Height 152.4 cm (5') 12/09/2022 8:41 AM CDT Body Mass Index 19.96 12/09/2022 8:41 AM CDT Plan of Treatment Not on file Insurance MEDICARE [facility] MEDICARE [facility] MEDICARE [facility] Advance Directives For more information, please contact: [phone] * Full Code (Latest Code Status on File) Date Activated Date Inactivated Comments 03/05/2018 12:43 PM 03/09/2018 5:55 PM Care Teams Gas Well Drilling Manager Relationship Specialty Start Date End Date Anamika South NP [facility] [address] TADEO [address] [place] [id number] PCP - General Nurse Practitioner 11/28/23
--- OUTSIDE RECORDS SUMMARY | 2024-11-08 09:47 | XMS_ITS | Encounter Summary ---
Author Organization [facility] Address [address] [place] [address] Care Team Providers Care Cabinet Finisher Name Role Phone Valery Walter MD Primary Care Provider Unavail able Encounter Details Date Type Department Care Team (Late st Contact Info) Description 11/07/2007 Outpatient Historical [facility] Family Medicine Cassandra Navin [address] [facility] [address] [place] [address] [place] [address] [facility] [address] [place] [address] Social History Tobacco Use Types Packs/Day Years Used Date Smoking Tobacco: Never Assessed Comments Unknown Sex and Gender Information Value Date Recorded Sex Assigned at Not on file 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
--- OUTSIDE RECORDS SUMMARY | 2024-11-08 09:47 | XMS_ITS | Encounter Summary ---
Author Organization [facility] Address [address] [place] [address] Care Team Providers Care Aerologist Name Role Phone Valery Walter MD Primary Care Provider Unavail able Encounter Details Date Type Department Care Team (Late st Contact Info) Description 04/25/2005 Outpatient Historical [facility] Family Medicine [facility] [address] [facility] [address] [place] [address] Magdi Calderón Social History Tobacco Use Types Packs/Day Years Used Date Smoking Tobacco: Never Assessed Comments Unknown Sex and Gender Information Value Date Recorded Sex Assigned at Not on file 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
--- OUTSIDE RECORDS SUMMARY | 2024-11-08 09:47 | XMS_ITS | Encounter Summary ---
Author Organization [facility] Address [address] [facility] Attn: [place] [address] Care Team Providers Care Supervisor Steno Pool Name Role Phone Valery Walter MD Primary Care Provider Unavail able Encounter Details Date Type Department Care Team (Latest Contact Info) Description 07/17/2006 Orders Only Paige Prado MD [address] [place] [id number] Social History Tobacco Use Types Packs/Day Years Used Date Smoking Tobacco: Never Assessed Comments Unknown Sex and Gender Information Value Date Recorded Sex Assigned at Not on file 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 BLOOD PRESSURE: 120/72. Left Arm Sitting PULSE: 74. Left Radial, Regular ALLERGIES: No known drug allergies. CHIEF COMPLAINT Med refill HISTORY: HISTORY: 272.4-HYPERLIPIDEMIA The patient has gained weight. The patient is somewhat compliant with the low saturated fat diet. The patient`s exercise is the same. The medication was discontinued by the patient because of nausea. she stopped the medication 3 times, the nausea went away every time and then restarted and nausea returned. Patient finished 26/30 pills. Patient brought copies of old medical records from Dr. Laboy. She gave MA info to copy and scan into emr. ROS: GENERAL: Normal activity and energy level, no change in appetite. No major weight gain or loss. No malaise, chills, fever, diaphoresis. CARDIAC: No chest pain, palpitations, orthopnea, dyspnea on exertion, or paroxysmal nocturnal dyspnea. RESPIRATORY: No dyspnea, cough, hemoptysis or wheezing. : No frequency, urgency, hematuria or dysuria. GI: See HISTORY OF PRESENT ILLNESS. PSYCHIATRIC: No increased nervousness, mood changes or depression. Coping well. Patient's history reviewed; no changes. PHYSICAL EXAMINATION: CONSTITUTIONAL: GENERAL APPEARANCE: Healthy appearing patient in no distress. RESPIRATORY: Clear to auscultation and percussion. Normal respiratory effort. CARDIOVASCULAR: CARDIAC: Regular rhythm. No murmurs, rubs, or gallops. ARTERIAL: Normal radial pulses, normal pedal pulses. EDEMA/VARICOSITIES OF EXTREMITIES: No edema. GASTROINTESTINAL: ABDOMEN: Soft, non-tender, without masses. Bowel sounds active. PSYCHIATRIC: Judgment appropriate. Oriented. Normal memory. Mood and affect appropriate. ASSESSMENT/PLAN: 272.4-HYPERLIPIDEMIA - will switch from simvastatin to pravachol (these are the 2 preferred statinsfor her insurance company). Will have patient recheck cholesterol after being on new med for 3 weeks, giving her approximately 7 weeks of therapy before recheck. Continue to encourage lifestyle modification. Will see back in about 1 month. Gave patient info regarding pravachol. MEDICATIONS: PRAVACHOL ORAL TABLET 40 MG, one tab po qday, 30 Dispensed, 30 Duration/Days Supply, status: NEW PRESCRIPTION, 07/17/2006. LAB ORDERS: Order number: [id number] Test Ordered: LIPID PANEL 1078 Order number: [id number] Test Ordered: AST 1119 RETURN VISIT: Patient instructed to return in 1 month. 07/18/06 11:06 a Electronically signed by Paige Prado MD. TEACHING PHYSICIAN COMMENTS: I have reviewed the resident's note and I agree with the resident's evaluation and plan. Electronically Signed by: Genaro Reynoso MD on Tuesday, July 18, 2006 documented in this encounter Plan of Treatment Not on file documented as of this encounter Visit Diagnoses Not on filedocumented in this encounter Care Teams Supervisor Steno Pool Relationship Specialty Start Date End Date Valery Walter MD NO ADDRESS ON FILE PCP - General 05/26/06 08/05/19 documented as of this encounter
--- OUTSIDE RECORDS SUMMARY | 2024-11-08 09:47 | XMS_ITS | Encounter Summary ---
Author Organization [facility] Healthcare Address [address] [place] [address] Care Team Providers Care Rigging Engineer Name Role Phone Osman Matson MD Primary Care Provider [phone] Jessica Moeller NP Primary Care Provider [phone] Anamika South NP Primary Care Provider + Encounter Details Date Type Department Care Team (Late st Contact Info) Description 02/27/2018 Telephone [facility] Anesthesia [address] [place] [address] Vashti Nelson NP [address] [place] [address] Social History Tobacco Use Types Packs/Day Years Used Date Smoking Tobacco: Former Cigarettes 2 38 0 08/28/1961 - 08/28/1999 Smokeless Tobacco: Never Alcohol Use Standard Drinks/Week Comments Yes 0 (1 standard drink = 0.6 oz pur e alcohol) Occassional glass of wine. 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 Gender Identity Female 12/09/2020 1:34 PM CDT Sexual Orientation Straight 12/09/2020 1: 34 PM CDT documented as of this encounter Plan of Treatment Not on file documented as of this encounter Visit Diagnoses Not on filedocumented in this encounter Care Teams Rigging Engineer Relationship Specialty Start Date End Date Osman Matson MD [address] [place] [address] PCP - General 06/30/17 12/07/21 Jessica Moeller NP [address] [place] [address] PCP - General Family Medicine 12/08/21 11/27/23 Anamika South NP [address] [place] [address] [place] [address] PCP - General Nurse Practitioner 11/28/23 documented as of this encounter
--- OUTSIDE RECORDS SUMMARY | 2024-11-08 09:47 | XMS_ITS | Encounter Summary ---
Author Organization [facility] Address [address] [place] [address] Care Team Providers Care Newspaper Editor Name Role Phone Valery Walter MD Primary Care Provider Unavail able Encounter Details Date Type Department Care Team (Late st Contact Info) Description 11/26/2007 Outpatient Historical [facility] Family Medicine [facility] [address] 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
--- OUTSIDE RECORDS SUMMARY | 2024-11-08 09:47 | XMS_ITS | Clinical Summary ---
Author Organization [facility] Address [address] [place] [address] Care Team Providers Care Meteorologist In Charge Name Role Phone Anamika South NP Primary Care Provider + Allergies Active Allergy Reactions Criticality Noted Date Comments Atorvastatin Vomiting,Nausea And Vomiting Low 02/18 Simvastatin Nausea & Vomiting,Nausea And Vomiting Low 02/18/2009 Medications Gj-Y3-pxe-zinc-co r-mdcf-gdrdh 600 mg calcium- 800 unit-40 mg tablet,chewable [...] fatty acids-fish oil 684-1,200 mg capsule,delayed release(DR/EC) [place] 3, 6, 9 BID for supplement Active [...] 500 mg tablet 0 06/29/20 18 Active BVYNZ-1L-NDS-EPA- FISH OIL-D3 ORAL Take by mouth. Active albuterol HFA (PROVENTIL HFA,VENTOLIN HFA,PROAIR HFA) 90 mcg/actuation inhaler 10/29/19 22 Active alendronate (FOSAMAX) 70 mg tablet Take 1 tablet (70 mg total) by mouth once a week 09/29/19 23 Active Active Problems Problem Noted Date Diagnosed Date Mass of upper lobe of right lung 03/01/2018 Overview (03/01/2018): Added automatically from request for surgery [id number] Lung cancer 02/20/2018 Choledocholithiasis 01/08/2018 Abnormal findings on imaging of biliary tract Abnormal findings on diagnos tic imaging of liver and biliary tract 06/29/2017 Malignant neoplasm of urinary bladder 03/03/2014 Hematuria 03/03/2014 Surgical History Surgery Date Site/Laterality Comments ID COLONOSCOPY FLX DX W/COLLJ SPEC WHEN PFRMD Colonoscopy - (Added by TW Conv) TRANSURETHRAL RESECTION OF BLADDER TUMOR COLON SURGERY 08/28/2009 - 08/27/2010 ERCP PERCUTANEOUS NEEDLE BIOPSY LUNG RIGHT Medical History Medical History Date Comments Hyperlipidemia Hiatal hernia Bladder cancer (HCC) Mononeuropathy of right lower extremity r/t falling down the stairs. 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 Family History Medical History Relation Name Comments Colon cancer Brother Hypertension Brother Lung cancer Brother Family history of lung cancer - (Added by TW Conv) Diabetes Mother Family history of diabetes mellitus - (Added by TW Conv) Diabetes type II Mother Family hist ory of type 2 diabetes mellitus - (Added by TW Conv) Heart disease Mother Family history of cardiac disorder - (Added by TW Conv) Heart disease Other 1 Family history of cardiac disorder - (Added by TW Conv) Diabetes Other 2 Family history of diabetes mellitus - (Added by TW Conv) Lung cancer Other 3 Family history of lung cancer - (Added by TW Conv) Hypertension Sister Relation Name Status Comments Brother Mother Other 1 Other 2 Other 3 Sister Social History Tobacco Use Types Packs/Day Years [...] on file Legal Sex Female 6:33 AM 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 Gender Identity Female 12/09/2020 1:34 PM CDT Sexual Orientation Straight 12/09/2020 1: 34 PM CDT Obstetrics History Last Filed Vital Signs Vital Sign Reading [...] 12/09/2022 8:41 AM CDT Plan of Treatment Health Maintenance Due Date Last Done Comments Depression Screening 1942 Fall Risk Assessment 1942 Hepatitis B Screening 1960 Zoster Vaccine (1 of 2) 1992 DTaP/Tdap/Td Vaccine (1 - Tdap) 04/26/2005 5 Well Visit 65+ 2007 Osteoporosis Screening-Bone Density Scan 07/05/2015 07/05/2013, 07/05/2013 Influenza Vaccine (#1) 2024 9, 09/14/2017, 06/24/2013, Additional history exists Pneumococcal vaccine 65+ Completed 05/07/2019, 01/27 Insurance MEDICARE [facility] MEDICARE [facility] MEDICARE [facility] Advance Directives For more information, please contact: [phone] * Full Code (Latest Code Status on File) Date Activated Date Inactivated Comments 03/05/2018 12:43 PM 03/09/2018 5:55 PM Care Teams Meteorologist In Charge Relationship Specialty Start Date End Date Anamika South NP [address] [place] [address] [address] PCP - General Nurse Practitioner 11/28/23
--- OUTSIDE RECORDS SUMMARY | 2024-11-08 09:47 | XMS_ITS | Encounter Summary ---
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 WHO TOOK THE CALL: Caren Schmidt A GENERAL INFORMATION PATIENT STATUS: Established Patient. PCP: Eve. ALTERNATIVE PHONE NUMBER: [phone] WHO CALLED: Patient called. PHARMACY NUMBER: [phone] SECTION 1: REQUESTED ACTION brian 09/08/06 at 10:23 am: Pt has follow-up appt scheduled for 09/13 at 4:30pm re cholesterol. She only has three tablets left and would like to know if you can call in a refillfor Pravastatin 40mg. She would also like to know if her chol has gone down. DOCTOR`S RESPONSE: jak 09/08/06 at 01:10 pm Refill now with 3 additional refills. MEDICATIONS: Call in to Pharmacy PRAVACHOL ORAL TABLET 40 MG, one tab po qday, 30 Dispensed, 3 Fills, 30 Duration/Days Supply, status: CONTINUED, 09/08/2006. Can you call patient and let her know that cholesterol is much improved and we will go over the numbers at her next appointment. thanks. [facility] FINAL ACTION: opal 09/08/06 at 01:29 pm Called in script for the pt and also notified pt of the above info. Silvia Electronically Signed by: Silvia Hammond on Friday, September 08, 2006 documented in this encounter Plan of Treatment Not on file documented as of this encounter Visit Diagnoses Not on filedocumented in this encounter Care Teams Visual Basic Developer Relationship Specialty Start Date End Date Valery Walter MD NO ADDRESS ON FILE PCP - General 05/26/06 08/05/19 documented as of this encounter
--- OUTSIDE RECORDS SUMMARY | 2024-11-08 09:47 | XMS_ITS | Clinical Summary ---
Author Organization [facility] Address [address] [place] [address] Phone Care Team Providers Care Internal Audit Senior Manager Name Role Phone Unavailable Primary Care Provider Unavailabl e Allergies Active Allergy Reactions Criticality Noted Date Comments Atorvastatin Nausea and Vomiting Low 02/18/2009 Simvastatin Nausea and Vomiting Low 02/18/2009 Medications aspirin (JAZMIN) 81 mg Oral Tab Take 81 mg by mouth daily. Active Calcium Carbonate-Vit D3-Min (CALTRATE PLUS) 600-400 mg-unit Oral Tab Take by mouth daily. Active [id number] a-fish oil (OMEGA 3) 350-400 mg Oral Cap Take by mouth. Active pravastatin (PRAVACHOL) 40 mg tablet TAKE ONE TABLET BY MOUTH EVERY DAY AT BEDTIME 90 Tab 1 12/11/2013 Active Active Problems Problem Noted Date Diagnosed Date Dry eye syndrome 06/24/2013 History of colon cancer 04/24/2012 Overview (04/24/2012): 08/26/[address] 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 16/16 nodes negative Personal history of tobacco use, presenting hazards to health 02/18/2009 Other and unspecified hyperlipidemia 05/18/2005 Resolved Problems Problem Noted Date Diagnosed Date Resolved Date Colon cancer 09/01/2010 04/24/2012 Overview (12/29/2010): 08/26/[address] 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 16/16 nodes negative Tubular adenoma of colon 08/06/201012/2010 Overview (08/06/2010): Large 08/06 Cellulitis and abscess of unspecified site 11/07/2007 02/18/2009 Pain in limb 05/26/2006 03/10/2010 Need for prophylactic vaccin ation with tetanus-diphtheria (Td) 05/23/2005 02/18/2009 Examination for medicolegal reason 04/25/2005 02/18/2009 Immunizations Immunization Administration Dates Next Due (PNEUMOVAX 23)(50 YRS UP) PN EUMOCOCCAL POLYSACCHARIDE (PPV23) 0.5 ML, IM 02/18/2009 (TDVAX)(7 YRS UP) TETANUS AN D DIPHTHERIA TOXOIDS, ADSORBED (2 LF OF TETANUS TOXOID AND 2 LF OF DIPHTHERIA TOXOID), 0.5ML (PF), IM 04/25/2005 Influenza Seasonal Unspecified Formulation IM Influenza Vaccine Split 3+ Yrs IM 06/24/2013 Family History Medical History Relation Name Comments Breast Cancer Neg Hx Relation Name Status Comments Brother lung ca, CABG Father (Age 63) heart dz i n 50's Mother (Age 74) diabetes Sister Alive HTN Social History Tobacco Use Types Packs/Day Years Used Date Smoking Tobacco: Former Cigarettes Q uit: 08/28/2000 Smokeless Tobacco: Never Alcohol Use Standard Drinks/Week Comments No 0 (1 standard drink = 0.6 oz pur e alcohol) Comments No Sex and Gender Information Value Date Recorded Sex Assigned at Not on file 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 SECURITY TECH Gender Identity Not on file Sexual Orientation Not on file Occupation Industry Job Start Date Job End Date Not on file Not on file Not on file Not on file Last Filed Vital Signs Vital Sign Reading Time Taken Comments Blood Pressure 130/76 06/24/2013 9:29 AM CDT Pulse 62 06/24/2013 9:29 AM CDT Temperature 36.4 C (97.5 F) 08/17/2011 9:29 AM SECURITY TECH Respiratory Rate 18 08/17/2011 9:47 AM SECURITY TECH Oxygen Saturation 99% 08/17/2011 9:47 AM SECURITY TECH Inhaled Oxygen Concentration - - Weight 61.7 kg (136 lb) 06/24/2013 9:29 AM CDT Height 154.9 cm (5' 1 ) 06/24/2013 9:29 AM CDT Body Mass Index 25.7 06/24/2013 9:29 AM CDT Plan of Treatment Health Maintenance Due Date Last Done Comments ZOSTER VACCINE (1 of 2) 1992 DTAP/TDAP/TD VACCINES (1 - Tdap) 04/26/2005 04/25/20 05 PNEUMOCOCCAL VACCINE 50+ YEA RS (2 of 2 - PCV) 02/18/2010 02/18/2009 RSV VACCINE (60+ or ) (1 - 1-dose 75+ series) 2017 INFLUENZA VACCINE (#1) 2024 06/24/2013, 2010 OSTEOPOROSIS SCREENING Completed 07/05/2013 Procedures Procedure Name Priority Date/Time Associated Diagnosis Comments XR DEXA BONE DENSITY AXIAL 1 OR MORE SITES Routine 07/05/2013 9:50 AM SECURITY TECH Postmenopausal status from Last 3 Months or Most Recently Relevant to Health Maintenance Results * XR DEXA BONE DENSITY AXIAL 1 OR MORE SITES (07/05/2013 9:50 AM SECURITY TECH) Anatomical Region Laterality Modality Digital Radiogra phy 07/05/2013 9:30 AM SECURITY TECH Narrative 07/05/2013 9:56 AM SECURITY TECH XR DEXA BONE DENSITY AXIAL 1 OR MORE SITES Dictated from Location 1 ([facility]) HISTORY: 73 yo F with postmenopausal symptoms on calcium supplementation needing evaluation for osteoporosis. PROCEDURE: Using a [employer] dual energy x-ray absorptiometry system, the patient's bone mineral density was measured over the lumbar spine and femurs. Comparison was made to age and sex matched normal values. FINDINGS: Lumbar Spine (L1-L4) Bone Mineral Density = 1.009 gm/cm2 Compared to young adult (T-score), difference of -1.4 Standard Deviations. The patient's spine BMD is osteopenic when compared to that of a young adult. Left Femoral Neck Bone Mineral Density = 0.908 gm/cm2 Compared to young adult (T-score), difference of -0.9 Standard Deviations. The patient's left femoral neck BMD is normal when compared to that of a young adult. Right Femoral Neck Bone Mineral Density = 0.965 gm/cm2 Compared to young adult (T-score), difference of -0.5 Standard Deviations. The patient's right femoral neck BMD is normal when compared to that of a young adult. No prior DEXA studies are available for comparison. Procedure Note MarthaFeliberto cantu, DO - 07/05/2013 XR DEXA BONE DENSITY AXIAL 1 OR MORE SITES Dictated from Location 1 ([facility]) HISTORY: 73 yo F with postmenopausal symptoms on calcium supplementation needing evaluation for osteoporosis. PROCEDURE: Using a [employer] dual energy x-ray absorptiometry system, the patient's bone mineral density was measured over the lumbar spine and femurs. Comparison was made to age and sex matched normal values. FINDINGS: Lumbar Spine (L1-L4) Bone Mineral Density = 1.009 gm/cm2 Compared to young adult (T-score), difference of -1.4 Standard Deviations. The patient's spine BMD is osteopenic when compared to that of a young adult. Left Femoral Neck Bone Mineral Density = 0.908 gm/cm2 Compared to young adult (T-score), difference of -0.9 Standard Deviations. The patient's left femoral neck BMD is normal when compared to that of a young adult. Right Femoral Neck Bone Mineral Density = 0.965 gm/cm2 Compared to young adult (T-score), difference of -0.5 Standard Deviations. The patient's right femoral neck BMD is normal when compared to that of a young adult. No prior DEXA studies are available for comparison. Valery Walter MD DIAGNOSTIC IMAGING ORDERABLES Final Result from Last 3 Months or Most Recently Relevant to Health Maintenance Insurance MEDICARE PART A AND B [facility] Advance Directives For more information, please contact: [phone] * Full Code (Latest Code Status on File) Date Activated Date Inactivated Comments 08/17/2011 7:50 AM 08/18/2011 2:01 AM * Full Code Date Activated Date Inactivated Comments 08/26/2010 7:03 PM 08/29/2010 12:52 PM * Full Code Date Activated Date Inactivated Comments 08/26/2010 12:26 PM 08/26/2010 7:03 PM * Full Code Date Activated Date Inactivated Comments 08/26/2010 12:15 PM 08/26/2010 12:26 PM * Full Code Date Activated Date Inactivated Comments 07/30/2010 9:51 AM 07/31/2010 2:31 AM
--- OUTSIDE RECORDS SUMMARY | 2024-11-08 09:47 | XMS_ITS | Encounter Summary ---
Author Organization [facility] Address [address] [facility] Attn: [place] [address] Care Team Providers Care Pie Icer Machine Name Role Phone Valery Walter MD Primary Care Provider Unavail able Encounter Details Date Type Department Care Team (Latest Contact Info) Description 08/07/2006 Orders Only Paige Prado MD [address] [place] [id number] Social History Tobacco Use Types Packs/Day Years Used Date Smoking Tobacco: Never Assessed Comments Unknown Sex and Gender Information Value Date Recorded Sex Assigned at Not on file 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 PAIN MANAGEMENT NURSE Gender Identity Not on file Sexual Orientation Not on file documented as of this encounter Progress Notes * Paige Prado MD - 06/11/2008 2:30 AM CDT TIME:12:34 pm PATIENT`S HOME PHONE: PATIENT`S WORK PHONE: PATIENT`S INSURANCE: [employer] [facility] WHO TOOK THE CALL: Jenny Harper A GENERAL INFORMATION PCP: Eve. ALTERNATIVE PHONE NUMBER: [phone] WHO CALLED: Patient called. PHARMACY NUMBER: [phone] PROBLEMS: COUGH:Patient complains of cough. The symptoms began approximately 3 weeks ago. Will not go away, OTC did not work SECTION 1: RN/SHEET MUSIC SALESPERSON RESPONSE: [email or web address] 08/07/06 at 03:22 pm spoke with pt....states she has a dry tickling coughfor the past 3 weeks. Denies fever, cold sx's, congestion, wheezing or SOB. States she feels fine except she is tired from cough. States it interferes with her sleep. Has tried several OTC w/o relief. Requesting cough Rx. No allergies. Ana Rosa DOCTOR`S RESPONSE: [email or web address] 08/07/06 at 04:43 pm MEDICATIONS: Call in to Pharmacy BRONTEX ORAL TABLET 10-300 MG, one tab po q4 hours prn, 30 Dispensed, 10 Duration/Days Supply, status: NEW PRESCRIPTION, 08/07/2006. generic is fine. Can you call this in for me? thanks. [facility] SECTION 2: 08-08-06 Called in RX. done [place] Electronically Signed by: Austin Seth on Tuesday, August 08, 2006 documented in this encounter Plan of Treatment Not on file documented as of this encounter Visit Diagnoses Not on filedocumented in this encounter Care Teams Pie Icer Machine Relationship Specialty Start Date End Date Valery Walter MD NO ADDRESS ON FILE PCP - General 05/26/06 08/05/19 documented as of this encounter
--- OUTSIDE RECORDS SUMMARY | 2024-11-08 09:47 | XMS_ITS | Encounter Summary ---
Author Organization [facility] Address [address] [place] [address] Care Team Providers Care Manager Cancer Name Role Phone Valery Walter MD Primary Care Provider Unavail able Encounter Details Date Type Department Care Team (Latest Contact Info) Description 09/05/2006 Outpatient Historical [facility] Family Medicine [facility] [address] [place] [address] [place] [address] [place] [address] Other and Unspecified Hyperlipidemia (Primary Dx) Social History Tobacco Use Types Packs/Day Years Used Date Smoking Tobacco: Never Assessed Comments Unknown Sex and Gender Information Value Date Recorded Sex Assigned at Not on file 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 SPORTS STATISTICIAN Gender Identity Not on file Sexual Orientation Not on file documented as of this encounter Plan of Treatment Not on file documented as of this encounter Procedures Procedure Name Priority Date/Time Associated Diagnosis Comments AST Routine 09/05/2006 7:27 AM SPORTS STATISTICIAN LIPID PANEL Routine 09/05/2006 7:27 AM SPORTS STATISTICIAN documented in this encounter Results * AST (09/05/2006 7:27 AM SPORTS STATISTICIAN) AST 20 12 - 32 U/L INTERFAC E SYSTEM 09/05/2006 7:27 AM SPORTS STATISTICIAN Genaro Reynoso MD CHEMISTRY ORDERABLES Edited Performing Organization Address [facility] de Phone Number INTERFACE SYSTEM Refer to clinic/hospital department * (ABNORMAL) LIPID PANEL (09/05/2006 7:27 AM SPORTS STATISTICIAN) CHOLESTEROL 212(H) 100 - 199 mg/dL INTERFACE SYSTEM TRIGLYCERIDE 109 10 - 149 mg/dL INTERFACE SYSTEM HDL 53 40 - 59 mg/dL INTERFACE SYSTEM CHOL/HDL RATIO 4.0 2.0 - 5.0 INTER FACE SYSTEM LDL CALCULATED 137(H) <=99 mg/dL INTERFACE SYSTEM LIPID PANEL COMMENT See Below INTERFACE SYSTEM Comment: The adult ATP and pediatric NCEP classifications for lipids are available on the [facility] at: [email or web address] Select: Lab Policies and Procedures Select: Reference Ranges - Lipids 09/05/2006 7:27 AM SPORTS STATISTICIAN us Genaro Reynoso MD CHEMISTRY ORDERABLES Edited Performing Organization Address [facility] Co de Phone Number INTERFACE SYSTEM Refer to clinic/hospital department documented in this encounter Visit Diagnoses Diagnosis Other and unspecified hyperlipidemia- Primary documented in this encounter Care Teams Manager Cancer Relationship Specialty Start Date End Date Valery Walter MD NO ADDRESS ON FILE PCP - General 05/26/06 08/05/19 documented as of this encounter
--- OUTSIDE RECORDS SUMMARY | 2024-11-08 09:47 | XMS_ITS | Patient Health Summary ---
Author Organization [facility] Address [address] [place] [address] Care Team Providers Care Stogie Packer Name Role Phone Unavailable Primary Care Provider Unavailabl e Note from [facility],non-owned Affiliates and Associated Physician Practices is amultiple site organization consisting of ambulatory clinics and hospital sitesin [place], [place], [place] and [place]. This disclosure is being madepursuant to the Care Everywhere program and may not contain all information available regarding this patient. Last updated 18.[facility] Social History Tobacco Use Types Packs/Day Years Used Date Smoking Tobacco: Never Assessed Sex and Gender Information Value Date Recorded Sex Assigned at Not on file Gender Identity Not on file Sexual Orientation Not on file Procedures * DERMATOPATHOLOGY(Performed 08/02/2022) * DERMATOPATHOLOGY(Performed 03/23/2022) Results * DERMATOPATHOLOGY (08/02/2022 12:00 AM TELEPHONE ORDER CLERK) Only the most recent of2 resultswithin the time period is included. Case Report Dermatopathology Report Case: [id number] Authorizing Provider: Yusuf Alas MD Collected: 08/02/2022 12:00 AM Ordering Location: [facility] DermPath Lab Received: 08/03/2022 05:56 AM Pathologist: Maximo Whitlock MD Specimen: Skin, left hand 2 2:19 PM TELEPHONE ORDER CLERK DERMATOPATHOLOGY LABORATORY Final Diagnosis Specimen A. SKIN, left hand: SQUAMOUS CELL CARCINOMA, WELL DIFFERENTIATED (C44.629) 2 2:19 PM TELEPHONE ORDER CLERK DERMATOPATHOLOGY LABORATORY Clinical History R/O Recurren SCCA vs Cyst Path#[id number] 2 2:19 PM TELEPHONE ORDER CLERK DERMATOPATHOLOGY LABORATORY Gross Description Specimen A: Received is one formalin filled container labeled with the patient's name and designated left hand. The specimen consists of a shave biopsy measuring 6x5x2 mm. Jar 0. 2:19 PM [facility] DERMATOPATHOLOGY LABORATORY Microscopic Description Specimen A. SKIN, left hand: Arising in the epidermis and extending into the dermis there are irregularly shaped aggregates of keratinocytes showing evidence of premature cornification. 2:19 PM [facility] DERMATOPATHOLOGY LABORATORY Disclaimer An external and internal positive and negative controls are appropriate for the histochemical, immunohistochemical and immunofluorescence stain(s) in this case (if any), except where stated explicitly. The performance characteristics of the stain(s) cited in this report were developed and its performance characteristic determined by the Dermatopathology Laboratory at [facility], directed by Dr. Lazaro Whitlock. These tests need not be, and therefore are not, approved by the [place] Food and Drug Administration. The tests are used for clinical purposes. Billing Codes Specimen Charges Stain Charges 82312 1 2 2:19 PM [facility] DERMATOPATHOLOGY LABORATORY Embedded Images 2 2:19 PM [facility] DERMATOPATHOLOGY LABORATORY Pathology/Cytolog y TISSUE SPECIMEN FROM SKIN / Unknown 08/02/2022 08/03/2022 5:56 AM [facility] Yusuf Alas MD LAB - PATHOLOGY/CYTO LOGY ORDERABLES DERMATOPATHOLOGY LABORATORY [facility] - Department of Dermatology [address], [address] [phone]
--- OUTSIDE RECORDS SUMMARY | 2024-11-08 09:47 | XMS_ITS | Encounter Summary ---
Author Organization [facility] Address [address] [place] [address] Care Team Providers Care Whizzer Hand Name Role Phone Valery Walter MD Primary Care Provider Unavail able Encounter Details Date Type Department Care Team (Late st Contact Info) Description 11/26/2007 Outpatient Historical [facility] Family Medicine Cassandra Navin [address] [place] [address] [place] [address] [place] [address] Social History Tobacco Use Types Packs/Day Years Used Date Smoking Tobacco: Never Assessed Comments Unknown Sex and Gender Information Value Date Recorded Sex Assigned at Not on file 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
--- OUTSIDE RECORDS SUMMARY | 2024-11-08 09:47 | XMS_ITS ---
Author Organization [facility] Address [address] [place] [address] Care Team Providers Care Respiratory Support Technician Name Role Phone Anamika South NP Primary Care Provider + Active Problems Problem Noted Date Diagnosed Date Mass of upper lobe of right lung 03/01/2018 Overview (03/01/2018): Added automatically from request for surgery [id number] Lung cancer 02/20/2018 Choledocholithiasis 01/08/2018 Abnormal findings on imaging of biliary tract Abnormal findings on diagnos tic imaging of liver and biliary tract 06/29/2017 Malignant neoplasm of urinary bladder 03/03/2014 Hematuria 03/03/2014 Current Treatment and Therapy Plans No current plan information found. Past Treatment and Therapy Plans No past plan information found. Lifetime Dose Tracking * Chemical Lifetime Dose Automatic Entry Manual Entr y DLP 1,151 mGycm 1,151 mGycm 0 mGycm
--- OUTSIDE RECORDS SUMMARY | 2024-11-08 09:47 | XMS_ITS | Encounter Summary ---
Author Organization [employer] [facility] Address [address] [place] [address] Care Team Providers Care Textile Technologist Name Role Phone Valery Walter MD Primary Care Provider Unavail able Encounter Details Date Type Department Care Team (Latest Contact Info) Description 02/18/2009 Outpatient Historical [facility] Valery Silva MD NO ADDRESS ON FILE Other and Unspecified Hyperlipidemia; Hyperlipidemia Social History Tobacco Use Types Packs/Day Years Used Date Smoking Tobacco: Former Alcohol Use Standard Drinks/Week Comments Not Asked 0 (1 standard drink = 0.6 oz pur e alcohol) Comments No Sex and Gender Information Value Date Recorded Sex Assigned at Not on file 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 Gender Identity Not on file Sexual Orientation Not on file documented as of this encounter Plan of Treatment Not on file documented as of this encounter Procedures Procedure Name Priority Date/Time Associated Diagnosis Comments ALT Routine 02/18/2009 8:51 AM CDT Hyperlipidemia GLUCOSE FASTING Routine 02/18/2009 8:51 AM CDT Hyperlipidemia LIPID PANEL Routine 02/18/2009 8:51 AM CDT Hyperlipidemia documented in this encounter Results * GLUCOSE FASTING (02/18/2009 8:51 AM CDT) GLUCOSE FASTING 93 65 - 99 mg/dL [facility] 02/18/2009 8:51 AM CDT 02/18/2009 12:54 PM CDT Valery Walter MD CHEMISTRY ORDERABLES Final Res ult Performing Organization Address [facility] Phone Number INTERFACE SYSTEM Refer to clinic/hospital department [facility] CLIA# [id number] [address] [place] [address] * (ABNORMAL) LIPID PANEL (02/18/2009 8:51 AM CDT) CHOLESTEROL 193 100 - 199 mg/dL [facility] TRIGLYCERIDE 118 10 - 149 mg/dL [facility] CHOL/HDL RATIO 3.4 2.0 - 5.0 [facility] HDL 56 40 - 59 mg/dL [facility] LDL CALCULATED 113(H) <=99 mg/dL [facility] LIPID PANEL COMMENT See Below [facility] Comment: The adult ATP and pediatric NCEP classifications for lipids are available on the [facility] Intranet at: [email or web address] Select: Lab Policies and Procedures,Current Select: Lipid Panel Interpretation 02/18/2009 8:51 AM CDT 02/18/2009 12:54 PM CDT Valery Walter MD CHEMISTRY ORDERABLES Edited Performing Organization Address [facility] de Phone Number INTERFACE SYSTEM Refer to clinic/hospital department [facility] CLIA# [id number] [address] [place] [address] * ALT (02/18/2009 8:51 AM CDT) ALT 17 0 - 31 U/L [facility] 02/18/2009 8:51 AM CDT 02/18/2009 12:54 PM CDT us Valery Walter MD CHEMISTRY ORDERABLES Final Res ult INTERFACE SYSTEM Refer to clinic/hospital department [facility] CLIA# [id number] [address] [place] [address] documented in this encounter Visit Diagnoses Diagnosis Other and unspecified hyperlipidemia Hyperlipidemia Other and unspecified hyperlipidemia documented in this encounter Care Teams Textile Technologist Relationship Specialty Start Date End Date Valery Walter MD NO ADDRESS ON FILE PCP - General 05/26/06 08/05/19 documented as of this encounter
--- OUTSIDE RECORDS SUMMARY | 2024-11-08 09:47 | XMS_ITS | Encounter Summary ---
Author Organization [employer] Address 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 Gender Identity Not on file Sexual Orientation Not on file documented as of this encounter Plan of Treatment Not on file documented as of this encounter Procedures Procedure Name Priority Date/Time Associated Diagnosis Comments HEPATIC FUNCTION PANEL Routine 11/26/2007 9:04 AM CDT LIPID PANEL Routine 11/26/2007 9:04 AM CDT documented in this encounter Results * (ABNORMAL) LIPID PANEL (11/26/2007 9:04 AM CDT) CHOLESTEROL 175 100 - 199 mg/dL [facility] CHOL/HDL RATIO 3.7 2.0 - 5.0 [facility] TRIGLYCERIDE 106 10 - 149 mg/dL [facility] HDL 47 40 - 59 mg/dL [facility] LDL CALCULATED 107(H) <=99 mg/dL [facility] LIPID PANEL COMMENT See Below [facility] Comment: The adult ATP and pediatric NCEP classifications for lipids are available on the [facility] at: [email or web address] Select: Lab Policies and Procedures,Current Select: Lipid Panel Interpretation Blood specimen (specimen) 11/26/2007 9:04 AM CDT 11/26/2007 12:52 PM CDT Valery Walter MD CHEMISTRY ORDERABLES Edited Performing Organization Address City/[facility]/ZIP Co de Phone Number [facility] [address] [place] [address] * HEPATIC FUNCTION PANEL (11/26/2007 9:04 AM CDT) ALBUMIN 4.2 3.4 - 4.8 g/dL [facility] ALT 29 0 - 31 U/L [facility] BILIRUBIN TOTAL 0.3 0.2 - 1.0 mg/dL [facility] ALKALINE PHOSPHATASE 95 35 - 104 U/L [facility] BILIRUBIN DIRECT 0.1 0.0 - 0.3 mg/dL [facility] TOTAL PROTEIN 7.1 6.3 - 8.6 g/dL [facility] AST 24 12 - 32 U/L [facility] Blood specimen (specimen) 11/26/2007 9:04 AM CDT 11/26/2007 12:52 PM CDT us Valery Walter MD CHEMISTRY ORDERABLES Final Res ult Performing Organization Address City/[facility]/ZIP Co de Phone Number [facility] [address] [place] [address] documented in this encounter Visit Diagnoses Diagnosis Vaginitis and vulvovaginitis, unspecified Pure hypercholesterolemia documented in this encounter Care Teams Director Instrumentation Relationship Specialty Start Date End Date Valery Walter MD NO ADDRESS ON FILE PCP - General 05/26/06 08/05/19 documented as of this encounter
--- OUTSIDE RECORDS SUMMARY | 2024-11-08 09:47 | XMS_ITS | Encounter Summary ---
Author Organization [facility] Address [address] [place] [address] Care Team Providers Care Motorboat Operator Name Role Phone Valery Walter MD Primary Care Provider Unavail able Encounter Details Date Type Department Care Team (Latest Contact Info) Description 05/26/2006 Outpatient Historical [facility] Family Medicine [facility] [address] [place] [address] Valery Walter MD NO ADDRESS ON FILE Other and Unspecified Hyperlipidemia (Primary Dx) Social History Tobacco Use Types Packs/Day Years Used Date Smoking Tobacco: Never Assessed Comments Unknown Sex and Gender Information Value Date Recorded Sex Assigned at Not on file 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 PAPER TUBE GRADER Gender Identity Not on file Sexual Orientation Not on file documented as of this encounter Plan of Treatment Not on file documented as of this encounter Procedures Procedure Name Priority Date/Time Associated Diagnosis Comments ALT Routine 05/26/2006 11:38 AM CDT AST Routine 05/26/2006 11:38 AM CDT CK Routine 05/26/2006 11:38 AM CDT documented in this encounter Results * CK (05/26/2006 11:38 AM CDT) CK 107 10 - 145 U/L INTERFACE SYSTEM 05/26/2006 11:3 8 AM CDT us Valery Walter MD CHEMISTRY ORDERABLES Final Res ult Performing Organization Address City/State/[facility] Co de Phone Number INTERFACE SYSTEM Refer to clinic/hospital department * ALT (05/26/2006 11:38 AM CDT) ALT 16 0 - 31 U/L INTERFACE SYSTEM 05/26/2006 11:3 8 AM CDT us Valery Walter MD CHEMISTRY ORDERABLES Final Res ult Performing Organization Address City/[facility] Co de Phone Number INTERFACE SYSTEM Refer to clinic/hospital department * AST (05/26/2006 11:38 AM CDT) AST 27 12 - 32 U/L INTERFAC E SYSTEM 05/26/2006 11:3 8 AM CDT us Valery Walter MD CHEMISTRY ORDERABLES Final Res ult Performing Organization Address [facility] de Phone Number INTERFACE SYSTEM Refer to clinic/hospital department documented in this encounter Visit Diagnoses Diagnosis Other and unspecified hyperlipidemia- Primary documented in this encounter Care Teams Motorboat Operator Relationship Specialty Start Date End Date Valery Walter MD NO ADDRESS ON FILE PCP - General 05/26/06 08/05/19 documented as of this encounter
--- OUTSIDE RECORDS SUMMARY | 2024-11-08 09:47 | XMS_ITS | Encounter Summary ---
Author Organization [facility] Address [address] [place] [address] Care Team Providers Care Interior Design Assistant Name Role Phone Valery Walter MD Primary Care Provider Unavail able Encounter Details Date Type Department Care Team (Late st Contact Info) Description 07/17/2006 Outpatient Historical [facility] Family Medicine [facility] [address] [place] [address] [place] [address] [address] [place] [address] Social History Tobacco Use Types Packs/Day Years Used Date Smoking Tobacco: Never Assessed Comments Unknown Sex and Gender Information Value Date Recorded Sex Assigned at Not on file 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 BUSINESS INTELLIGENCE MANAGER Gender Identity Not on file Sexual Orientation Not on file documented as of this encounter Last Filed Vital Signs Vital Sign Reading Time Taken Comments Blood Pressure 120/72 07/17/2006 4:30 PM BUSINESS INTELLIGENCE MANAGER Pulse 74 07/17/2006 4:30 PM BUSINESS INTELLIGENCE MANAGER Temperature - - Respiratory Rate - - Oxygen Saturation - - Inhaled Oxygen Concentration - - Weight 66.7 kg (147 lb) 07/17/2006 4:30 PM BUSINESS INTELLIGENCE MANAGER Height - - Body Mass Index 28 05/26/2006 10:00 AM CDT documented in this encounter Plan of Treatment Not on file documented as of this encounter Visit Diagnoses Not on filedocumented in this encounter Care Teams Interior Design Assistant Relationship Specialty Start Date End Date Valery Walter MD NO ADDRESS ON FILE PCP - General 05/26/06 08/05/19 documented as of this encounter
--- OUTSIDE RECORDS SUMMARY | 2024-11-08 09:47 | XMS_ITS | Encounter Summary ---
Author Organization [facility] Address [address] [place] [address] Care Team Providers Care Instructional Specialist Name Role Phone Valery Walter MD Primary Care Provider Unavail able Encounter Details Date Type Department Care Team (Late st Contact Info) Description 05/26/2006 Outpatient Historical [facility] [address] [place] [address] Valery Walter MD NO ADDRESS ON FILE Social History Tobacco Use Types Packs/Day Years Used Date Smoking Tobacco: Never Assessed Comments Unknown Sex and Gender Information Value Date Recorded Sex Assigned at Not on file 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 HEALTH INFORMATION ADMINISTRATOR Gender Identity Not on file Sexual Orientation Not on file documented as of this encounter Last Filed Vital Signs Vital Sign Reading Time Taken Comments Blood Pressure 258/60 05/26/2006 10:00 AM CDT Pulse - - Temperature - - Respiratory Rate - - Oxygen Saturation - - Inhaled Oxygen Concentration - - Weight 65.3 kg (144 lb) 05/26/2006 10:00 AM CDT Height 154.3 cm (5' 0.75 ) 05/26/2006 10:00 AM C DT Body Mass Index 27.43 05/26/2006 10:00 AM CDT documented in this encounter Plan of Treatment Not on file documented as of this encounter Visit Diagnoses Not on filedocumented in this encounter Care Teams Instructional Specialist Relationship Specialty Start Date End Date Valery Walter MD NO ADDRESS ON FILE PCP - General 05/26/06 08/05/19 documented as of this encounter
--- OUTSIDE RECORDS SUMMARY | 2024-11-08 09:47 | XMS_ITS | Clinical Summary ---
Author Organization [facility] Address [address] [place] [address] Care Team Providers Care Alarm Signaler Name Role Phone Unavailable Primary Care Provider Unavailabl e Source Comments [facility],non-owned Affiliates and Associated Physician Practices is amultiple site organization consisting of ambulatory clinics and hospital sitesin [place], [place], [place] and [place]. This disclosure is being madepursuant to the Care Everywhere program and may not contain all information available regarding this patient. Last updated 18.[facility] [employer] Social History Tobacco Use Types Packs/Day Years Used Date Smoking Tobacco: Never Assessed Sex and Gender Information Value Date Recorded Sex Assigned at Not on file Gender Identity Not on file Sexual Orientation Not on file Plan of Treatment Health Maintenance Due Date Last Done Comments BONE DENSITY TESTING 1942 MEDICARE AWV 12 MONTHS 1942 DTAP/TDAP/TD VACCINES (1 - Tdap) 1961 PNEUMOCOCCAL VACCINE 50+ (1 of 1 - PCV) 1992 ZOSTER VACCINE (1 of 2) 1992 Respiratory Syncytial Virus (RSV) Vaccine Pt: or over 60 yrs (1 - 1-dose 75+ series) 2017 COVID-19 VACCINE ( - 2023-2 5 season) 2024 INFLUENZA VACCINE (#1) 2024 DEPRESSION SCREENING 08/28/2024 HEPATITIS B VACCINE Aged Out No longe r eligible based on patient's age to complete this topic HIB VACCINE Aged Out No longer eligi ble based on patient's age to complete this topic HPV VACCINE Aged Out No longer eligi ble based on patient's age to complete this topic MENINGOCOCCAL (Group B) VACC INE SHARED DECISION-MAKING Aged Out No longer eligibl e based on patient's age to complete this topic MENINGOCOCCAL GROUPS A/C/Y/W VACCINE Aged Out No longer eligible b ased on patient's age to complete this topic
--- OUTSIDE RECORDS SUMMARY | 2024-11-08 09:47 | XMS_ITS | Encounter Summary ---
Author Organization [facility] Address [address] [place] [address] Care Team Providers Care Cafe Cook Name Role Phone Unavailable Primary Care Provider Unavailabl e Encounter Details Date Type Department Care Team (Late st Contact Info) Description 08/03/2022 Lab Requisition [facility] DermPath Lab [address] [place] [phone] Yusuf Alas MD [address] [place] [address] Social History Tobacco Use Types Packs/Day Years Used Date Smoking Tobacco: Never Assessed Sex and Gender Information Value Date Recorded Sex Assigned at Not on file Gender Identity Not on file Sexual Orientation Not on file documented as of this encounter Plan of Treatment Not on file documented as of this encounter Procedures Procedure Name Priority Date/Time Associated Diagnosis Comments DERMATOPATHOLOGY Routine 08/02/2022 12:0 0 AM AURICULAR ACUPUNCTURIST documented in this encounter Results * DERMATOPATHOLOGY (08/02/2022 12:00 AM AURICULAR ACUPUNCTURIST) Case Report Dermatopathology Report Case: [id number] Authorizing Provider: Yusuf Alas MD Collected: 08/02/2022 12:00 AM Ordering Location: [facility] Received: 08/03/2022 05:56 AM Pathologist: Maximo Whitlock MD Specimen: Skin, left hand 2 2:19 PM AURICULAR ACUPUNCTURIST DERMATOPATHOLOGY LABORATORY Final Diagnosis Specimen A. SKIN, left hand: SQUAMOUS CELL CARCINOMA, WELL DIFFERENTIATED (C44.629) 2 2:19 PM AURICULAR ACUPUNCTURIST DERMATOPATHOLOGY LABORATORY Clinical History R/O Recurren SCCA vs Cyst Path#[id number] 2 2:19 PM [facility] DERMATOPATH[facility]Y [facility]ORATORY Gross Description Specimen A: Received is one formalin filled container labeled with the patient's name and designated left hand. The specimen consists of a shave biopsy measuring 6x5x2 mm. Jar 0. 2 2:19 PM [facility] DERMATOPATHOLOGY LABORATORY Microscopic Description Specimen A. SKIN, left hand: Arising in the epidermis and extending into the dermis there are irregularly shaped aggregates of keratinocytes showing evidence of premature cornification. 2 2:19 PM [facility] DERMATOPATHOLOGY LABORATORY Disclaimer An external and internal positive and negative controls are appropriate for the histochemical, immunohistochemical and immunofluorescence stain(s) in this case (if any), except where stated explicitly. The performance characteristics of the stain(s) cited in this report were developed and its performance characteristic determined by the Dermatopathology Laboratory at [facility], directed by Dr. Lazaro Whitlock. These tests need not be, and therefore are not, approved by the [place] Food and Drug Administration. The tests are used for clinical purposes. Billing Codes Specimen Charges Stain Charges 92428 1 2 2:19 PM [facility] DERMATOPATHOLOGY [facility]ORATORY Embedded Images 2 2:19 PM [facility] DERMATOPATH[facility]Y [facility]ATORY Pathology/Cytolog y TISSUE SPECIMEN FROM SKIN / Unknown 08/02/2022 08/03/2022 5:56 AM AURICULAR ACUPUNCTURIST Yusuf Alas MD LAB - PATHOLOGY/CYTO LOGY ORDERABLES DERMATOPATHOLOGY LABORATORY [facility] - Department of Dermatology [address] [phone] documented in this encounter Visit Diagnoses Not on filedocumented in this encounter
--- OUTSIDE RECORDS SUMMARY | 2024-11-08 09:47 | XMS_ITS | Encounter Summary ---
Author Organization [facility] Address [address] [place] [address] Care Team Providers Care Home Attendant Name Role Phone Valery Walter MD Primary Care Provider Unavail able Encounter Details Date Type Department Care Team (Late st Contact Info) Description 11/07/2007 Outpatient Historical [facility] Family Medicine [facility] [address] [place] [address] Katey Orantes MD [address] [place] [phone] Social History Tobacco Use Types Packs/Day Years Used Date Smoking Tobacco: Never Assessed Comments Unknown Sex and Gender Information Value Date Recorded Sex Assigned at Not on file 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 Gender Identity Not on file Sexual Orientation Not on file documented as of this encounter Last Filed Vital Signs Vital Sign Reading Time Taken Comments Blood Pressure 118/70 11/07/2007 10:00 AM CDT Pulse 76 11/07/2007 10:00 AM CDT Temperature 36.4 C (97.6 F) 11/07/2007 10:00 AM CDT Respiratory Rate - - Oxygen Saturation - - Inhaled Oxygen Concentration - - Weight 64 kg (141 lb) 11/07/2007 10:00 AM CDT Height - - Body Mass Index 26.86 05/26/2006 10:00 AM CDT documented in this encounter Plan of Treatment Not on file documented as of this encounter Visit Diagnoses Not on filedocumented in this encounter Care Teams Home Attendant Relationship Specialty Start Date End Date Valery Walter MD NO ADDRESS ON FILE PCP - General 05/26/06 08/05/19 documented as of this encounter
--- OUTSIDE RECORDS SUMMARY | 2024-11-08 09:47 | XMS_ITS | Encounter Summary ---
Author Organization [facility] Address [address] [place] [address] Care Team Providers Care Loom Overhauler Name Role Phone Unavailable Primary Care Provider Unavailabl e Encounter Details Date Type Department Care Team (Late st Contact Info) Description 03/24/2022 Lab Requisition [facility] DermPath Lab [address] [place] [phone] Yusuf Alas MD [address] [place] [address] Social History Tobacco Use Types Packs/Day Years Used Date Smoking Tobacco: Never Assessed Sex and Gender Information Value Date Recorded Sex Assigned at Not on file Gender Identity Not on file Sexual Orientation Not on file documented as of this encounter Plan of Treatment Not on file documented as of this encounter Procedures Procedure Name Priority Date/Time Associated Diagnosis Comments DERMATOPATHOLOGY Routine 03/23/2022 3:33 AM CDT documented in this encounter Results * DERMATOPATHOLOGY (03/23/2022 3:33 AM CDT) Case Report Dermatopathology Report Case: [id number] Authorizing Provider: Yusuf Alas MD Collected: 03/23/2022 03:33 AM Ordering Location: [facility] DermPath Lab Received: 03/24/2022 04:51 PM Pathologist: Hannah Laguerre MD Specimen: Skin, left hand 2 1:33 PM CDT DERMATOPATHOLOGY LABORATORY Final Diagnosis Specimen A. SKIN, left hand: SQUAMOUS CELL CARCINOMA IN SITU, PRESENT AT THE BASE OF THE SPECIMEN (D04.62) (see microscopic description and comment) 2 1:33 PM CDT DERMATOPATHOLOGY LABORATORY Clinical History [facility] vs. Other. Path# [id number] 2 1:33 PM CDT DERMATOPATHOLOGY LABORATORY Gross Description Specimen A: Received is one formalin filled container labeled with the patient's name and designated left hand. The specimen consists of a shave biopsy measuring [id number]. Jar 0. 2 1:33 PM CDT DERMATOPATHOLOGY LABORATORY Microscopic Description Specimen A. SKIN, left hand: The epidermis shows parakeratosis, full thickness disorderly maturation of keratinocytes, mitoses at different levels, and dyskeratotic cells. The lesion extends to the base of the biopsy. COMMENT: An invasive squamous cell carcinoma cannot be ruled out. 2 1:33 PM CDT DERMATOPATHOLOGY LABORATORY Disclaimer An external and internal positive and negative controls are appropriate for the histochemical, immunohistochemical and immunofluorescence stain(s) in this case (if any), except where stated explicitly. The performance characteristics of the stain(s) cited in this report were developed and its performance characteristic determined by the Dermatopathology Laboratory at [facility], directed by Dr. Lazaro Whitlock. These tests need not be, and therefore are not, approved by the [place] Food and Drug Administration. The tests are used for clinical purposes. Billing Codes Specimen Charges Stain Charges 60452 1 2 1:33 PM CDT DERMATOPATHOLOGY LABORATORY Embedded Images 2 1:33 PM CDT DERMATOPATHOLOGY LABORATORY Pathology/Cytolo gy TISSUE SPECIMEN FROM SKIN / Unknown 03/23/2022 3:33 AM CDT 03/24/2022 4:51 PM CDT Yusuf Alas MD LAB - PATHOLOGY/CYTO LOGY ORDERABLES DERMATOPATHOLOGY LABORATORY [facility] - Department of Dermatology [address] [phone] documented in this encounter Visit Diagnoses Not on filedocumented in this encounter
--- OUTSIDE RECORDS SUMMARY | 2024-11-08 09:47 | XMS_ITS | Encounter Summary ---
Author Organization [facility] Address [address] [place] [address] Care Team Providers Care Tin Recovery Worker Name Role Phone Valery Walter MD Primary Care Provider Unavail able Encounter Details Date Type Department Care Team (Late st Contact Info) Description 09/13/2006 Orders Only [facility] Family Medicine [facility] [address] [place] [address] [place] [address] [place] [address] Social History Tobacco Use Types Packs/Day Years Used Date Smoking Tobacco: Never Assessed Comments Unknown Sex and Gender Information Value Date Recorded Sex Assigned at Not on file 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 MANAGER EMPLOYMENT Gender Identity Not on file Sexual Orientation Not on file documented as of this encounter Progress Notes * Randy Sanchez MD - 01/22/2008 12:32 PM CDT NURSE NAME: Randy Sanchez L WEIGHT: 145lbs. BLOOD PRESSURE: 130/84. Right Arm Sitting PULSE: 68. Right Radial, Regular ALLERGIES: No known drug allergies. CHIEF COMPLAINT Patient here for follow up hyperlipidemia. HISTORY: HISTORY: 272.4-HYPERLIPIDEMIA The patient`s weight is the same. The patient is compliant with the low saturated fat diet. The patient`s exercise is the same. The patient is tolerating the medications. The patient's most recent LDL is at goal, most recent HDL is at goal, most recent triglyceride is at goal, most recent liver function is normal. PHYSICAL EXAMINATION: CONSTITUTIONAL: GENERAL APPEARANCE: Healthy appearing patient in no distress. RESPIRATORY: Clear to auscultation and percussion. Normal respiratory effort. CARDIOVASCULAR: CARDIAC: Regular rhythm. No murmurs, rubs, or gallops. ASSESSMENT/PLAN: 272.4-HYPERLIPIDEMIA ASSESSMENT: Will not change medication, continue to monitor for complications. The patient is attempting to follow a low cholesterol diet. Weight loss was encouraged. Regular aerobic exercise was encouraged. No laboratory work is necessary at this time. MEDICATIONS: PRAVACHOL ORAL TABLET 40 MG, one tab po qday, 30 Dispensed, 5 Fills, 30 Duration/Days Supply, status: CONTINUED, 09/13/2006. PATIENT EDUCATION: Previously prescribed diet was emphasized. The benefits of exercise were reviewed at length with the patient. RETURN VISIT: Patient instructed to return in 6 months. Electronically Signed by: Randy Sanchez MD on Wednesday, September 13, 2006 documented in this encounter Plan of Treatment Not on file documented as of this encounter Visit Diagnoses Not on filedocumented in this encounter Care Teams Tin Recovery Worker Relationship Specialty Start Date End Date Valery Walter MD NO ADDRESS ON FILE PCP - General 05/26/06 08/05/19 documented as of this encounter
--- OUTSIDE RECORDS SUMMARY | 2024-11-08 09:47 | XMS_ITS | Encounter Summary ---
Author Organization [facility] Address [address] [place] [address] Care Team Providers Care Litigation Partner Name Role Phone Valery Walter MD Primary Care Provider Unavail able Encounter Details Date Type Department Care Team (Late st Contact Info) Description 04/25/2005 Outpatient Historical [facility] Family Medicine [facility] [address] [address] [place] [phone] Magdi Calderón Social History Tobacco Use Types Packs/Day Years Used Date Smoking Tobacco: Never Assessed Comments Unknown Sex and Gender Information Value Date Recorded Sex Assigned at Not on file 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 CROWN POUNCER Gender Identity Not on file Sexual Orientation Not on file documented as of this encounter Plan of Treatment Not on file documented as of this encounter Visit Diagnoses Not on filedocumented in this encounter Care Teams Litigation Partner Relationship Specialty Start Date End Date Valery Walter MD NO ADDRESS ON FILE PCP - General 05/26/06 08/05/19 documented as of this encounter
--- OUTSIDE RECORDS SUMMARY | 2024-11-08 09:47 | XMS_ITS | Encounter Summary ---
Author Organization [facility] Address [address] [place] [address] Care Team Providers Care Promotor Group Ticket Sales Name Role Phone Valery Walter MD Primary Care Provider Unavail able Encounter Details Date Type Department Care Team (Late st Contact Info) Description 05/18/2005 Outpatient Historical [facility] Family Medicine [facility] [address] [place] [address] Valery Walter MD NO ADDRESS ON FILE Social History Tobacco Use Types Packs/Day Years Used Date Smoking Tobacco: Never Assessed Comments Unknown Sex and Gender Information Value Date Recorded Sex Assigned at Not on file 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 CHAIRPERSON ANESTHESIOLOGY Gender Identity Not on file Sexual Orientation Not on file documented as of this encounter Last Filed Vital Signs Vital Sign Reading Time Taken Comments Blood Pressure 110/70 05/18/2005 11:30 AM CDT Pulse - - Temperature 36.1 C (96.9 F) 05/18/2005 11:30 AM CDT Respiratory Rate - - Oxygen Saturation - - Inhaled Oxygen Concentration - - Weight 64.9 kg (143 lb) 05/18/2005 11:30 AM CDT Height - - Body Mass Index - - documented in this encounter Plan of Treatment Not on file documented as of this encounter Visit Diagnoses Not on filedocumented in this encounter Care Teams Promotor Group Ticket Sales Relationship Specialty Start Date End Date Valery Walter MD NO ADDRESS ON FILE PCP - General 05/26/06 08/05/19 documented as of this encounter
--- OUTSIDE RECORDS SUMMARY | 2024-11-08 09:47 | XMS_ITS | Encounter Summary ---
Author Organization [facility] Address [address] [place] [address] Care Team Providers Care Model And Mold Maker Plaster Name Role Phone Valery Walter MD Primary Care Provider Unavail able Encounter Details Date Type Department Care Team (Late st Contact Info) Description 09/13/2006 Outpatient Historical [facility] Family Medicine [facility] [address] [place] [address] [place] [address] [place] [address] Social History Tobacco Use Types Packs/Day Years Used Date Smoking Tobacco: Never Assessed Comments Unknown Sex and Gender Information Value Date Recorded Sex Assigned at Not on file 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 STEM MOUNTER Gender Identity Not on file Sexual Orientation Not on file documented as of this encounter Last Filed Vital Signs Vital Sign Reading Time Taken Comments Blood Pressure 130/84 09/13/2006 4:00 PM STEM MOUNTER Pulse 68 09/13/2006 4:00 PM STEM MOUNTER Temperature - - Respiratory Rate - - Oxygen Saturation - - Inhaled Oxygen Concentration - - Weight 65.8 kg (145 lb) 09/13/2006 4:00 PM STEM MOUNTER Height - - Body Mass Index 27.62 05/26/2006 10:00 AM CDT documented in this encounter Plan of Treatment Not on file documented as of this encounter Visit Diagnoses Not on filedocumented in this encounter Care Teams Model And Mold Maker Plaster Relationship Specialty Start Date End Date Valery Walter MD NO ADDRESS ON FILE PCP - General 05/26/06 08/05/19 documented as of this encounter
--- OUTSIDE RECORDS SUMMARY | 2024-11-08 09:47 | XMS_ITS | Encounter Summary ---
Author Organization [facility] Address [address] [facility] Attn: [place] [address] Care Team Providers Care Insurance Loss Assessor Name Role Phone Valery Walter MD Primary Care Provider Unavail able Encounter Details Date Type Department Care Team (Latest Contact Info) Description 02/20/2007 Orders Only Paige Prado MD [address] [place] [address] Social History Tobacco Use Types Packs/Day Years Used Date Smoking Tobacco: Never Assessed Comments Unknown Sex and Gender Information Value Date Recorded Sex Assigned at Not on file 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 ALTERNATIVE PHONE NUMBER: [phone] WHO CALLED: Patient called. CURRENT ALLERGY LIST: none PHARMACY NUMBER: [phone] SECTION 1: REQUESTED ACTION valerie 02/20/07 at 08:26 am: pt has poison natacha/oak. it is in her eyes, on face, neck, and arms. has a little on legs. would like something called in for this, generic if possible. NKDA DOCTOR`S RESPONSE: jak 02/21/07 at 09:34 am MEDICATIONS: Call in to Pharmacy PREDNISONE ORAL TABLET 10 MG, 6 tabs po qday X4days, then 5 tabs po X4days, then 4 pills po qday X4days, then 3 pills po qday X4 days, then 2 pills po qday X4 days, then 1 pill po qday X4days, then 1/2 tab po qday X4days, 86 Dispensed, 28 Duration/Days Supply, status: NEW PRESCRIPTION, 02/20/2007. No answer left a message on patient`s recorder. Called prescription into pharmacy. Would like to speak with patient still, please page me when she calls back. cjp SECTION 2: DOCTOR`S RESPONSE: jak 02/22/07 at 02:30 pm No answer or busy. SECTION 3: DOCTOR`S RESPONSE: jak 02/26/07 at 05:09 pm No answer left a message on patient`s recorder. documented in this encounter Plan of Treatment Not on file documented as of this encounter Visit Diagnoses Not on filedocumented in this encounter Care Teams Insurance Loss Assessor Relationship Specialty Start Date End Date Valery Walter MD NO ADDRESS ON FILE PCP - General 05/26/06 08/05/19 documented as of this encounter
--- OUTSIDE RECORDS SUMMARY | 2024-11-08 09:47 | XMS_ITS | Encounter Summary ---
Author Organization [facility] Address [address] [place] [address] Care Team Providers Care Pharmacologist Name Role Phone Valery Walter MD Primary Care Provider Unavail able Encounter Details Date Type Department Care Team (Late st Contact Info) Description 11/07/2007 Orders Only [facility] Family Medicine [facility] [address] [place] [address] Katey Orantes MD [address] [place] [address] Social History Tobacco Use Types Packs/Day Years Used Date Smoking Tobacco: Never Assessed Comments Unknown Sex and Gender Information Value Date Recorded Sex Assigned at Not on file 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 BLOOD PRESSURE: 118/70. Left Arm Sitting PULSE: 76. Left Radial, Regular TEMPERATURE: 97.6??f. Oral ALLERGIES: No known drug allergies. TOBACCO USE: Patient does not currently use tobacco. CHIEF COMPLAINT cyst on left foot.est.[facility] HISTORY: HISTORY OF PRESENT ILLNESS: Pt is here for possible cyst on foot. Pt states that the pain and an area that looked like a boil started two weeks ago. Pt states she took a bath and it popped at that time, draining puss and blood. No drainage since. Pt states that since then it has been tender. No fevers sweats or chills. No redness or streaking up her leg. Area is tenders. No trouble walking or trou ble moving toes. Pt has no previous history of abscess and no history of any one in the house hold having abscesses. ROS: GENERAL: Normal activity and energy level, no change in appetite. No major weight gain or loss. No malaise, chills, fever, diaphoresis. SKIN/BREAST/CHEST: See HISTORY OF PRESENT ILLNESS. MUSCULOSKELETAL: See HISTORY OF PRESENT ILLNESS. PHYSICAL EXAMINATION: CONSTITUTIONAL: GENERAL APPEARANCE: Healthy appearing patient in no distress. MUSCULOSKELETAL EXAM: GAIT/STATION: Normal gait. EXTREMITIES: LEFT LOWER EXTREMITY: DORSUM OF FOOT IS TENDER, full range of motion. PE - M/S - RIGHT LWR EXTREMITY: No misalignment or tenderness. Full range of motion. Normal stability, strength and tone. SKIN: RASH/LESION #1 LOCATION: Proximal dorsal aspect of the left foot. CHARACTERISTICS: The lesion is red. The lesion is tender. No drainage, darkened area in center. Ecchymosis + ASSESSMENT Abscess 682.9. TREATMENT No fluctuant area to I and D. Will treat with antibiotics. ASSESSMENT/PLAN: 682.9-CELLULITIS/ABSCESS ASSESSMENT: No area to culture at this time as above. Will treat with antibiotics covering for MRSA. Pt to return if worsens. Pt instructed to clean foot with soap and water and keep would covered and dry. MEDICATIONS: BACTRIM DS ORAL TABLET 800-160 MG, one po tid for 10 days, 30 Dispensed, status: NEW PRESCRIPTION, 11/07/2007. RETURN VISIT: Pt to call if worsening. Pt schedule follow up on chronic medical issues as soon as possible. 11/07/07 10:44 a Electronically signed by Katey Orantes MD. TEACHING PHYSICIAN COMMENTS: I saw and evaluated the patient. I agree with the findings and the plan of care as documented in the resident's note. S.P. Electronically Signed by: Ricci Judd MD on Sunday, November 11, 2007 documented in this encounter Plan of Treatment Not on file documented as of this encounter Visit Diagnoses Not on filedocumented in this encounter Care Teams Pharmacologist Relationship Specialty Start Date End Date Valery Walter MD NO ADDRESS ON FILE PCP - General 05/26/06 08/05/19 documented as of this encounter
--- OUTSIDE RECORDS SUMMARY | 2024-11-08 09:47 | XMS_ITS | Referral Summary ---
Author Organization [facility] Address [address] [place] [address] Care Team Providers Care Osteology Teacher Name Role Phone Unavailable Primary Care Provider Unavailabl e Source Comments [facility],non-owned Affiliates and Associated Physician Practices is amultiple site organization consisting of ambulatory clinics and hospital sitesin [place], [place], [place] and [place]. This disclosure is being madepursuant to the Care Everywhere program and may not contain all information available regarding this patient. Last updated 18.[facility] Social History Tobacco Use Types Packs/Day Years Used Date Smoking Tobacco: Never Assessed Sex and Gender Information Value Date Recorded Sex Assigned at Not on file Gender Identity Not on file Sexual Orientation Not on file Plan of Treatment Not on file
[2024-11-08 18:46] LABS: Alanine Aminotransferase 22 U/L (6-35); Albumin Level 4.3 g/dL (3.5-5.1); Alkaline Phosphatase 91 U/L (38-126); Anion Gap 8 mmol/L (4-12); Aspartate Amino Transferase 70 U/L (14-36); Basophils Absolute Auto 0.1 K/mm3 (0.0-0.1); Bilirubin,Total 0.7 mg/dL (0.2-1.3); Blood Urea Nitrogen 26 mg/dL (7-17); Calcium 9.4 mg/dL (8.4-10.2); Carbon Dioxide 29 mmol/L (22-30); Chloride 101 mmol/L (98-107); Cholesterol 178 mg/dL (0-200); Eosinophils Absolute Auto 0.1 K/mm3 (0-0.3); Eosinophils Percent Auto 2.2 % (0-4.4); Estimated Glomerular Filt Rate > 60; Glucose 78 mg/dL (65-110); HDL Direct 82 mg/dL; Hemoglobin 13.1 g/dL (12.0-15.0); Immature Granulocyte Absolute 0.01 K/mm3 (0.00-0.031); Immature Granulocyte Percent A 0.2 % (0-0.5); Lymphocytes Absolute Auto 1.13 K/mm3 (0.9-3.2); Lymphocytes Percent Auto 22.4 % (18.3-44.2); Mean Corpuscular HGB Conc 31.2 g/dl (32-36); Mean Corpuscular Hemoglobin 28.1 pg (26-34); Mean Corpuscular Volume 89.9 fl (80-100); Mean Platelet Volume 10.8 fl (7.4-10.4); Monocytes Absolute Auto 0.4 K/mm3 (0.1-0.6); Monocytes Percent Auto 8.1 % (2.6-8.5); Neutrophils Absolute Auto 3.3 K/mm3 (1.3-6.7); Neutrophils Percent Auto 66.1 % (45.5-73.1); Platelet Count Result 201 k/mm3 (150-375); Potassium 4.2 mmol/L (3.4-5.0); Red Blood Count 4.67 M/mm3 (4.2-5.4); Red Cell Distribution Width 13.9 % (11.5-14.5); Sodium 138 mmol/L (137-145); Triglycerides 52 mg/dL (<150); White Blood Count 5.1 K/mm3 (4.5-10.0)
[2024-11-08 18:48] LABS: Hemoglobin A1C 5.6 % (<5.7)
[2024-11-08 18:56] LABS: LDL Cholesterol Direct 73 mg/dL
== END 2024-11-08 09:17 | disposition home or self-care (01) ==
LOC: ANHGOSHLAB 09:17
PROVIDERS: PCP Family Medicine; Visit Provider Nurse Practitioner Family
DX: L65.9 Nonscarring hair loss, unspecified (principal); E78.5 Hyperlipidemia, unspecified; R73.03 Prediabetes; E78.2 Mixed hyperlipidemia
CPT/HCPCS: 36415; 80053; 80061; 83036; 84443; 85025

== ENCOUNTER 2025-02-07 13:27 | Outpatient (CLI) | payer MEDICARE, SELFPAY ==
--- NOTE | ~2025-02-07 | DEXA_ITS ---
Bone Density Report Name: ELIUD FIELDS Age: 84 Sex: Female Ethnicity: White Date of : 1940 Indication: postmenopausal osteoporosis; monitoring treatment; Referring Provider: Jessica Moeller Study: Bone densitometry was performed. Exam Date: February 07, 2025 Accession number: [id number] Bone Density: Region BMD T-score Z-score Classification AP Spine(L1-L4) 0.999 -0.4 2.3 Normal Femoral Neck (Left) 0.485 -3.3 -0.9 Osteoporosis Total Hip (Left) 0.540 -3.3 -1.1 Osteoporosis Femoral Neck (Right) 0.635 -1.9 0.5 Osteopenia Total Hip (Right) 0.680 -2.1 0.1 Osteopenia Total Hip Mean 0.610 -2.7 -0.5 Osteoporosis World Health Organization criteria for BMD impression classify patients as: Normal (T-score at or above -1.0), Osteopenia (T-score between -1.0 and -2.5), or Osteoporosis (T-score at or below -2.5). 10-year Fracture Risk: FRAX not reported because: Some T-score for Spine Total or Hip Total or Femoral Neck at or below -2.5 Treated for osteoporosis Previous Exams: -- Region Exam Age BMD T-score BMD Change BMD Change Date g/cm2 vs Baseline vs Previous -- AP Spine (L1-L4) 02/07/2025 84 0.999 -0.4 16.6%* 12.3%* 09/27/2022 82 0.890 -1.4 3.8%* 2.2% 06/12/2020 79 0.871 -1.6 1.6% 1.6% 12/28/2017 77 0.857 -1.7 Total Hip(Left) 02/07/2025 84 0.540 -3.3 -32.2%* -22.6%* 09/27/2022 82 0.697 -2.0 -12.5%* -9.2%* 06/12/2020 79 0.768 -1.4 -3.6%* -3.6%* 12/28/2017 77 0.796 -1.2 Total Hip(Right) 02/07/2025 84 0.680 -2.1 -12.5%* 9.6%* 09/27/2022 82 0.621 -2.6 -20.1%* -14.5%* 06/12/2020 79 0.726 -1.8 -6.6%* -6.6%* 12/28/2017 77 0.777 -1.4 -- *Denotes significance at 95% confidence level, LSC for AP Spine = 0.022 g/cm2, LSC for Total Hip = 0.027 g/cm2 Clinical Information Provided by Patient: Is being treated for osteoporosis Has used the following medications: Fosamax (i.e. alendronate), Vitamin D, Calcium Patient maximum height was 60 Menopause Age: 59 No regular weight bearing exercise Drinks caffeinated beverages Onset of menses at age 16 Number of children 3 Impression: The patient has osteoporosis, based on the Left Total Hip T-score. The BMD for the Total Hip(Left) decreased, changing by -22.6% since the last DXA exam. Discussion: SIGNIFICANT BONE LOSS OBSERVED. Adherence to therapy (including calcium and vitamin D intake) should be assessed. If compliance is not a factor, review management and exclusion of secondary causes of bone loss. It is important to ask patients whether they are taking their medications and to encourage continued and appropriate compliance with their osteoporosis therapies to reduce fracture risk. It is also important to review their risk factors and encourage appropriate calcium and vitamin D intakes, exercise, fall prevention and other lifestyle measures. Follow-Up: Consider a repeat BMD and Vertebral Fracture Assessment (VFA) exam in 2 years or sooner if medically necessary, to reassess this patient's status. Reported by: JUAN on 02/07/2025 1:52:00 PM. Reviewed, dictated and finalized at location A.
== END 2025-02-07 13:28 | disposition home or self-care (01) ==
LOC: MICIMG 13:34
PROVIDERS: PCP Family Medicine; Visit Provider Nurse Practitioner Family
DX: Z78.0 Asymptomatic menopausal state (principal); M81.0 Age-related osteoporosis without current pathological fracture; M85.852 Other specified disorders of bone density and structure, left thigh
CPT/HCPCS: 77080

== ENCOUNTER 2025-05-30 10:16 | Outpatient (CLI) | payer MEDICARE, SELFPAY ==
--- OUTSIDE RECORDS SUMMARY | 2025-05-30 10:27 | XMS_ITS | Encounter Summary ---
Author Organization [facility] Address [address] [place] [address] Care Team Providers Care Neck Fitter Name Role Phone Valery Walter MD Primary Care Provider Unavail able Encounter Details Date Type Department Care Team (Late st Contact Info) Description 12/03/2007 Orders Only [facility] Family Medicine [facility] [address] [place] [address] Paige Prado MD [address] [place] [address] Social History Tobacco Use Types Packs/Day Years Used Date Smoking Tobacco: Never Assessed Comments Unknown Sex and Gender Information Value Date Recorded Sex Assigned at Not on file 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 LAST VISIT: [id number] PCP: WHO CALLED: Patient called. ALTERNATIVE PHONE NUMBER: [phone] CURRENT ALLERGY LIST: NKDA PHARMACY NUMBER: [phone] SECTION 1: REQUESTED ACTION pruivl 12/03/07 at [...] on filedocumented in this encounter Care Teams Neck Fitter Relationship Specialty Start Date End Date Valery Walter MD NO ADDRESS ON FILE PCP - General 05/26/06 08/05/19 documented as of this encounter
--- OUTSIDE RECORDS SUMMARY | 2025-05-30 10:27 | XMS_ITS | Encounter Summary ---
Author Organization [facility] Address 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 Gender Identity Not on file Sexual Orientation [...] GLUCOSE FASTING 93 65 - 99 mg/dL [facility] 02/18/2009 8:51 AM CDT 02/18/2009 12:54 PM CDT Valery Walter MD CHEMISTRY ORDERABLES Final Res ult Performing Organization Address [facility] Phone Number INTERFACE SYSTEM Refer to clinic/hospital department [facility] CLIA# [id number] [address] [place] [address] * (ABNORMAL) LIPID PANEL (02/18/2009 8:51 AM CDT) CHOLESTEROL 193 100 - 199 mg/dL [facility] TRIGLYCERIDE 118 10 - 149 mg/dL [facility] CHOL/HDL RATIO 3.4 2.0 - 5.0 [facility] HDL 56 40 - 59 mg/dL [facility] LDL CALCULATED 113(H) <=99 mg/dL [facility] LIPID PANEL COMMENT See Below [facility] Comment: The adult ATP and pediatric NCEP classifications for lipids are available on the [facility] Intranet at: [email or web address] [facility]: Lab Policies and Procedures,Current [facility]: Lipid Panel Interpretation 02/18/2009 8:51 AM CDT 02/18/2009 12:54 PM CDT Valery Walter MD CHEMISTRY ORDERABLES Edited Performing Organization Address [facility] de Phone Number INTERFACE SYSTEM Refer to clinic/hospital department [facility] CLIA# [id number] [address] [place] [address] * ALT (02/18/2009 8:51 AM CDT) ALT 17 0 - 31 U/L [facility] 02/18/2009 8:51 AM CDT 02/18/2009 12:54 PM CDT us Valery Walter MD CHEMISTRY ORDERABLES Final Res ult INTERFACE SYSTEM Refer to clinic/hospital department [facility] CLIA# [id number] [address] [place] [place] [address] documented in this encounter Visit Diagnoses Diagnosis Other and unspecified hyperlipidemia Hyperlipidemia Other and unspecified hyperlipidemia documented in this encounter Care Teams Consulting Services Associate Relationship Specialty Start Date End Date Valery Walter MD NO ADDRESS ON FILE PCP - General 05/26/06 08/05/19 documented as of this encounter
--- OUTSIDE RECORDS SUMMARY | 2025-05-30 10:27 | XMS_ITS | Encounter Summary ---
Author Organization [facility] Address [address] [place] [address] Care Team Providers Care Sexual Assault Nurse Name Role Phone Valery Walter MD Primary Care Provider Unavail able Encounter Details Date Type Department Care Team (Late st Contact Info) Description 11/07/2007 Outpatient Historical [facility] Family Medicine [facility] [address] [place] [address] Katey Orantes MD [address] [place] [address] Social History Tobacco Use Types Packs/Day Years Used Date Smoking Tobacco: Never Assessed Comments Unknown Sex and Gender Information Value Date Recorded Sex Assigned at Not on file 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
--- OUTSIDE RECORDS SUMMARY | 2025-05-30 10:27 | XMS_ITS | Clinical Summary ---
Author Organization [facility] Address [address] [place] [address] Care Team Providers Care Osteopathic Resident Name Role Phone Unknown, Notinfile Primary Care Provider Unavail able Allergies Active Allergy Reactions Criticality Noted Date Comments Atorvastatin Nausea And Vomiting, Vomiting,Nausea & Vomiting Low 02/18/2009 Cephalexin Rash High 11/08/2024 Simvastatin Nausea & Vomiting,Nausea And Vomiting Low 02/18/2009 Medications Am-M4-xbt-zinc-co i-hnbz-myotf 600 mg calcium- 800 unit-40 mg tablet,chewable 2 times a day Active clobetasol (TEMOVATE) 0.05 % cream 2 (two) times a day as needed. Active flaxseed oil 1,000 mg capsule 2 (two) times a day. Active gabapentin (NEURONTIN) 300 mg capsuleIndication s:Neuropathic Pain 1 capsule (300 mg total) nightly 0 01/30/20 18 Active gabapentin (NEURONTIN) 100 mg capsule Active omega-3 fatty acids-fish oil 684-1,200 mg capsule,delayed release(DR/EC) [place] 3, 6, 9 BID for supplement Active [...] Active Additional Information Patient not taking.Reported on 05/02/2025 aspirin 81 mg tabletIndications :prevention of thrombosis [...] Active Additional Information Patient not taking.Reported on 05/12/2025 polyethylene glycol (MIRALAX) 17 gram packet Take 1 packet (17 g total) by mouth daily. This medication can be found over the counter, please follow the instructions listed on the packaging. 03/10/20 18 Active Additional Information Patient not taking.Reported on 05/12/2025 senna-docusate (PERICOLACE) 8.6-50 mg Take 1 tablet by mouth 2 (two) times a day. Until first bowel movement, or until pain medication is stopped. 03/09/20 18 Active cyanocobalamin, vitamin B-12, (VITAMIN B-12 ORAL) Take by mouth daily. Active aspirin-calcium carbonate 81 mg-300 mg calcium(777 mg) tablet Take 81 mg by mouth. Active ciprofloxacin (CIPRO) 500 mg tablet 0 06/29/20 18 Active IPNQR-[id number]-WIR-EPA- FISH OIL-D3 ORAL Take by mouth. Active albuterol HFA (PROVENTIL HFA,VENTOLIN HFA,PROAIR HFA) 90 mcg/actuation inhaler 10/29/19 22 Active alendronate (FOSAMAX) 70 mg tablet Take 1 tablet (70 mg total) by mouth once a week 09/29/19 23 Active Prolia 60 mg/mL syringe INJECT 60MG SUBCUTANEOUSLY ONCE EVERY 6 MONTHS 03/18/20 25 Active Active Problems Problem Noted Date Diagnosed Date Pulmonary nodule 05/02/2025 Mass of upper lobe of right lung 03/01/2018 Overview (03/01/2018): Added automatically from request for surgery [id number] Lung cancer 02/20/2018 Choledocholithiasis 01/08/2018 Abnormal findings on imaging of biliary tract Abnormal findings on diagnos tic imaging of liver and biliary tract 06/29/2017 Malignant neoplasm of urinary bladder 03/03/2014 Hematuria 03/03/2014 Encounters Date Type Department Care Team Description 05/14/2025 Telephone [facility] Medicine Surgery [address] [place] [address] 5 [place] [phone] Hannah Andres NP 05/14/2025 Orders Only [facility] [address] [place] [address] 5 [place] [phone] Hannah Andres, CHARLEY Pulmonary nodule (Primary Dx) 05/12/2025 6:30 AM CDT Office Visit [facility] [address] [facility] 1st [place] [address] Pulmonary nodule; Pre-procedural laboratory examinations; Neoplasm of unspecified behavior of unspecified site; Neoplasm 05/12/2025 6:11 AM CDT - 05/12/2025 11:59 PM CDT Hospital Encounter [facility] Radiology 1 [place] [address] History of lung cancer; Pulmonary nodule Discharge Disposition: Discharge to home or self care 05/06/2025 Telephone Radiology 1 [place] [address] Clarissa Cook, 05/05/2025 Orders Only [facility] [address] [place] [phone] Hannah Andres NP Pulmonary nodule (Primary Dx); Pre-procedural laboratory examinations; Neoplasm; Neoplasm of unspecified behavior of unspecified site 05/02/2025 10:45 AM CDT Office Visit [facility] [address] [place] [address] 5 [place] [phone] John Paul Adrian MD History of lung cancer (Primary Dx); Pulmonary nodule 05/02/2025 9:52 AM CDT - 05/02/2025 11:59 PM CDT Hospital Encounter [facility] Medicine PFT Lab [address] [place] [address] 1, [address] [place] [phone] Pulmonary nodule Discharge Disposition: Discharge to home or self care 05/02/2025 7:23 AM CDT - 05/02/2025 11:59 PM CDT Hospital Encounter [facility] [place] - PET [address] [facility] Floor 8 [place] [address] Discharge Disposition: Discharge to home or self care 05/02/2025 7:15 AM CDT - 05/02/2025 11:59 PM CDT Hospital Encounter [facility] [place] - PET [address] [facility] Floor 8 [place] [address] Pulmonary nodule Discharge Disposition: Discharge to home or self care 04/22/2025 Documentation [facility] [address] [place] [address] 5 [place] [address] JeovannyBelaCoty 04/22/2025 Orders Only [facility] [address] [place] [address] 5 [place] [address] Hannah Andres, PROFESSIONAL DEVELOPMENT DIRECTOR Pulmonary nodule (Primary Dx) 04/22/2025 Telephone [facility] [address] [place] [address] 5 [place] [address] Hannah Andres, CHARLEY 04/21/2025 Telephone [facility] [address] [place] [address] 5 [place] [address] Hannah Andres, PROFESSIONAL DEVELOPMENT DIRECTOR 04/19/2025 Orders Only [facility] [address] [place] [address] 5 [place] [address] Hannah Andres, PROFESSIONAL DEVELOPMENT DIRECTOR Pulmonary nodule (Primary Dx) 03/13/2025 8:36 AM CDT - 03/13/2025 11:59 PM CDT Hospital Encounter [facility] Medical Office Building [address] [address] History of lung cancer Discharge Disposition: Discharge to home or self care from Last 3 Months Immunizations Immunization Administration Dates Next Due Influenza, Quadrivalent, Hig h Dose, Preservative Free, Intrr 05/10/2023 Influenza, Trivalent, High D ose, Split, Preservative Free, Intramuscular 05/06/2022,04/28/2020,05/07/2019 Influenza, Trivalent, IM (MDV) 06/24/2013,2010 Influenza, Trivalent, Preser vative Free, Intramuscular 09/14/2017 [employer] (J[employer]J) SARS-CoV-2 Vaccination 10/28/2020 Moderna SARS-CoV-2 Monovalen t Vaccination (12+ YRS) 05/20/2023 Pfizer SARS-CoV-2 Monovalent Vaccination (12+ Yrs) PURPLE 05/20/2024,03/09/2022,08/11/2021 Pneumococcal Conjugate PCV 13 05/07/2019 Pneumococcal Polysaccharide PPV23 04/28/2020, RSV Vaccine, Pref, Recombina nt, Subunit, Adjuvanted, PF, IM (Arexvy) 05/20/2024,05/10/2023 Td, adsorbed 04/25/2005 Tdap 11/03/2022,05/14/2015 ZOSTER LIVE 08/17/2023,05/20/2023 Surgical History Surgery Date Site/Laterality Comments OR COLONOSCOPY FLX DX W/COLLJ SPEC WHEN PFRMD [...] Cigarettes 2 38 0 08/28/1961 - 08/28/1999 Passive Smoke Exposure: Past Smokeless Tobacco: Never Tobacco Cessation:Counseling Given: Not Answered Alcohol Use Standard Drinks/Week Comments Not Currently 0 (1 standard drink = 0.6 oz pur e alcohol) Occassional glass of wine. AUDIT-C Answer Date Recorded Frequency of Alcohol Consumption Never 05/12/2025 Q2: How many drinks containi ng alcohol do you have on a typical day when you are drinking? Patient does not drink Frequency of Binge Drinking Never 04/28 Personal Safety Answer Date Recorded Have you ever been in or are you currently in a harmful physical or emotional relationship or is someone making you feel afraid or unsafe? 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[employer] Gender Identity Female 12/09/2020 1:34 PM CDT Sexual Orientation Straight 12/09/2020 1: 34 PM CDT Obstetrics History Last Filed Vital Signs Vital Sign Reading Time Taken Comments Blood Pressure 137/75 05/12/2025 8:30 AM CDT Pulse 77 05/12/2025 8:30 AM CDT Temperature 36 C (96.8 F) 05/12/2025 7:20 AM CDT Respiratory Rate 21 05/12/2025 8:30 AM CDT Oxygen Saturation 100% 05/12/2025 8:30 AM CDT Inhaled Oxygen Concentration - - Weight 42.2 kg (93 lb) 05/12/2025 7:24 AM CDT Height 151.1 cm (4' 11.5) 05/12/2025 7:24 AM CD T Body Mass Index 18.47 05/12/2025 7:24 AM CDT Plan of Treatment Health Maintenance Due Date Last Done Comments Depression Screening 1942 Hepatitis B Screening 1960 Well Visit 65+ 2007 Osteoporosis Screening-Bone Density Scan 07/05/2015 07/05/2013, 07/05/2013 Zoster Vaccine (2 of 3) 10/12/2023 08/17/2023, 05/20 Covid-19 Vaccine ( - 2024-2 6 season) 2025 05/20/2024, 05/20/2023, 03/09/2022, Additional history exists Influenza Vaccine (#1) 2025 3, 05/06/2022, 04/28/2020, Additional history exists Fall Risk Assessment 05/12/2026 05/12/2025 DTaP/Tdap/Td Vaccine (3 - Td or Tdap) 11/03/2032 11/03/2022, 05/14/2015, 04/25/2005 Pneumococcal vaccine 65+ Completed 020, 05/07/2019, 02/18/2009 Procedures Procedure Name Priority Date/Time Associated Diagnosis Comments CT LIMITED LOCALIZED FOLLOW UP STUDY Schedule Routine, Read Routine (OP Routine) 05/12/2025 8:36 AM CDT History of lung cancer Pulmonary nodule DIFFERENTIAL AUTO STAT 05/12/2025 6:1 9 AM CDT Pulmonary nodule Pre-procedural laboratory examinations APTT STAT 05/12/2025 6:19 AM CDT Pulmonary nodule Pre-procedural laboratory examinations Neoplasm PROTIME-INR STAT 05/12/2025 6:19 AM CDT Pulmonary nodule Pre-procedural laboratory examinations Neoplasm of unspecified behavior of unspecified site CBC WITH AUTO DIFFERENTIAL STAT 05/12/2025 6:19 AM CDT Pulmonary nodule Pre-procedural laboratory examinations PULMONARY FUNCTION TEST (PFT) Routine 05/02/2025 10:31 AM CDT Pulmonary nodule PET/CT FDG SKULL TO THIGH Schedule Routine, Read Routine (OP Routine) 05/02/2025 9:28 AM CDT Pulmonary nodule CT CHEST WO CONTRAST Schedule Routine, Read Routine (OP Routine) 03/13/2025 9:07 AM CDT History of lung cancer from Last 3 Months Results * CT Limited Localized Follow Up Study (05/12/2025 8:36 AM CDT) Anatomical Region Laterality Modality Body N/A Computed Tomogra phy 05/12/2025 2:00 PM CDT Impressions 05/12/2025 2:[address] guided biopsy. No safe access. The radiology attending physician has personally reviewed this study, and had reviewed and/or edited this written report and agrees with it. Electronically signed by: Crescencio Flower M.D., MPH Narrative 05/12/2025 2:00 PM CDT EXAMINATION: CT LIMITED LOCALIZED FOLLOW UP STUDY TECHNIQUE: Computed tomographic examination of the chest was performed initially for CT-guided biopsy. However, this was not able to be performed. Prior to the procedure the patient was consented. HISTORY: Lung nodule. Prior right lung resection COMPARISON:05/02/2025 FINDINGS: There is a spiculated nodule in the right lower lobe that abuts the fissure. This is compatible with primary bronchogenic carcinoma. There is no safe access to biopsy this lesion. Procedure Note Crescencio Flower MD - 05/12/2025 EXAMINATION: CT LIMITED LOCALIZED FOLLOW UP STUDY TECHNIQUE: Computed tomographic examination of the chest was performed initially for CT-guided biopsy. However, this was not able to be performed. Prior to the procedure the patient was consented. HISTORY: Lung nodule. Prior right lung resection COMPARISON:05/02/2025 FINDINGS: There is a spiculated nodule in the right lower lobe that abuts the fissure. This is compatible with primary bronchogenic carcinoma. There is no safe access to biopsy this lesion. IMPRESSION: Unsuccessful CT guided biopsy. No safe access. The radiology attending physician has personally reviewed this study, and had reviewed and/or edited this written report and agrees with it. Electronically signed by: Crescencio Flower M.D., MPH Hannah Andres NP IM CT PROCEDURES Final Result * Differential, auto (05/12/2025 6:19 AM CDT) Neutrophil abs 3.02 1.50 - 6.50 K/cumm Imm gran abs 0.01 0.00 - 0.10 K/cumm [facility] Lymphocyte abs 1.25 0.80 - 3.30 K/cumm [facility] Monocyte abs 0.47 0.20 - 0.80 K/cumm [facility] Eosinophil abs 0.18 0.00 - 0.50 K/cumm [facility] Basophil abs 0.06 0.00 - 0.10 K/cumm [facility] Neutrophil pct 60.5 % [facility] Comment: Interpretive Data Percent cell count reference ranges are not reported, since discordance with absolute values may lead to misinterpretation of CBC data. Current Interpretive Data was last revised on 2017. Imm gran pct 0.2 % [facility] Comment: Interpretive Data Percent cell count reference ranges are not reported, since discordance with absolute values may lead to misinterpretation of CBC data. Current Interpretive Data was last revised on 2017. Lymphocyte pct 25.1 % [facility] Comment: Interpretive Data Percent cell count reference ranges are not reported, since discordance with absolute values may lead to misinterpretation of CBC data. Current Interpretive Data was last revised on 2017. Monocyte pct 9.4 % [facility] Comment: Interpretive Data Percent cell count reference ranges are not reported, since discordance with absolute values may lead to misinterpretation of CBC data. Current Interpretive Data was last revised on 2017. Eosinophil pct 3.6 % [facility] Comment: Interpretive Data Percent cell count reference ranges are not reported, since discordance with absolute values may lead to misinterpretation of CBC data. Current Interpretive Data was last revised on 2017. Basophil pct 1.2 % [facility] Comment: Interpretive Data Percent cell count reference ranges are not reported, since discordance with absolute values may lead to misinterpretation of CBC data. Current Interpretive Data was last revised on 2017. Blood 05/12/2025 6:19 AM CDT 05/12/2025 6:48 AM CDT us Hannah Andres PROFESSIONAL DEVELOPMENT DIRECTOR LAB BLOOD ORDERABLES Final Resu lt [facility] Department [place] [address] * CBC with auto differential (05/12/2025 6:19 AM CDT) [facility] WBC 4.99 3.80 - 9.90 K/cumm Hgb 13.2 11.9 - 15.5 g/dL [facility] Hct 39.6 35.6 - 45.5 % [facility] Plt 235 150 - 400 K/cumm [facility] MPV 9.9 9.1 - 12.3 fL [facility] RBC 4.68 3.90 - 5.20 M/cumm [facility] MCV 84.6 81.3 - 96.4 fL [facility] MCH 28.2 27.1 - 33.3 pg [facility] MCHC 33.3 32.3 - 35.7 g/dL [facility] RDW CV 13.2 11.1 - 14.9 % [facility] RDW SD 40.8 35.7 - 48.1 fL [facility] NRBC abs 0.00 0.00 - 0.01 K/cumm [facility] Blood 05/12/2025 6:19 AM CDT 05/12/2025 6:48 AM CDT Hannah Andres NP LAB BLOOD ORDERABLES Final Resu lt Performing Organization Address City/[facility] Co de Phone Number [facility] [place] [address] * aPTT (05/12/2025 6:19 AM CDT) [facility] aPTT 29 26 - 38 sec Comment: Interpretive Data Heparin therapeutic range: 66.0 - 100.0 seconds. Range based on correlation with therapeutic heparin activity range of 0.3 - 0.7 Units/mL. Current interpretive data was last revised on 2023. Blood 05/12/2025 6:19 AM CDT 05/12/2025 6:37 AM CDT Hannah Andres NP LAB BLOOD ORDERABLES Final Resu lt Performing Organization Address City/[facility] Co de Phone Number [facility] Department [place] [address] * Protime-INR (05/12/2025 6:19 AM CDT) PT 11.6 10.2 - 13.5 sec INR 1.03 0.90 - 1.[address] [facility] Comment: Interpretive data Oral anticoagulant therapeutic ranges: Venous thromboembolism prophylaxis or treatment: 2.0-3.0 CARDIOLOGY Standard range: 2.0-3.0 High-intensity range: 2.5-3.5 Refer to indication-specific guidelines for appropriate target ranges for prosthetic heart valve replacement. Current interpretive data was last revised on 2019. Blood 05/12/2025 6:19 AM CDT 05/12/2025 6:37 AM CDT us Hannah Andres PROFESSIONAL DEVELOPMENT DIRECTOR LAB BLOOD ORDERABLES Final Resu lt [facility] Department [place] [address] * Pulmonary Function Test - (05/02/2025 10:31 AM CDT) FVC PRE 2.67 L [facility] FVC %PRE PRED 129 % [facility] FEV1 PRE 1.40 L [facility] FEV1 %PRE PRED 88 % [facility] FEV1/FVC PRE 52.5 % [facility] FRC PL PRE 3.[address] [facility] FRC PL %PRE PRED 140 % [facility] RV PRE 2.57 L [facility] RV %PRE PRED 115 % [facility] TLC PRE 5.10 L [facility] TLC %PRE PRED 116 % [facility] DLCO PRE 15.1 ml/min/mmH g [facility] DLCO %PRE PRED 93 % [facility] Anatomical Region Laterality Modality PFT 05/02/2025 9:54 AM CDT Narrative 05/02/2025 12:12 PM CDT PFT performed at:->[id number] Procedure:->Complete/Full PFT Procedure:->Lung Volumes Procedure:->Spirometry Procedure:->Spirometry with Bronchodilator Procedure:->DLCO Standard:->Spirometry, Spirometry w/bronchodilator, DLCO and Lung Volumes DLCO:->Lung volumes Lung Volumes via:->Pleth with Airway Resistance Standard:->Plethysmography w/airway resistance, nitrogen washout Pulmonary Function Test Interpretation SPIROMETRY: There is a decrease in expiratory airflow at middle lung volumes. The FEV1 to FVC ratio is reduced. The inspiratory loop is appropriate for the expiratory flow abnormality. LUNG VOLUMES: TLC measured by plethysmography is normal. DLCO: The diffusing capacity is normal. Impression: There is a minimal obstructive defect. There is no impairment of alveolar gas exchange by DLCO. The attending pulmonary physician certifies a physician presence in the [facility] during the administration of aerosolized bronchodilator. The attending pulmonary physician certifies that he/she has reviewed and interpreted the graphic and numerical data of this pulmonary function study and agrees with the written final report. The lower limit of normal for PaO2 and %HbO2 is age dependent. However, the [facility] defines hypoxemia as a PaO2 <56 mm Hg or a %HbO2 <89%. Starting on August of 2024 the [facility] utilizes race neutral [employer] normative equations. us Hannah Andres PROFESSIONAL DEVELOPMENT DIRECTOR PFT ORDERABLES Final Result * PET/CT FDG Skull to Thigh (05/02/2025 9:28 AM CDT) Anatomical Region Laterality Modality N/A Positron Emissio n Tomography (PET) 05/02/2025 10:1 9 AM CDT Impressions 05/02/2025 12:30 PM CDT 1. Several FDG-avid pulmonary nodules in the right lung with moderate to intense uptake compatible with malignancy. 2. Right posterior lower lobe nodule with more distal groundglass opacity with marked uptake favored to represent a postobstructive inflammatory/infectious process. 3. Hypermetabolic mediastinal and left hilar lymph nodes favored to represent metastases. Dictated by: Alvin Ramirez M.D. The radiology attending physician has personally reviewed this study, and had reviewed and/or edited this written report and agrees with it. Electronically signed by: Alejo Lee M.D. Narrative 05/02/2025 12:30 PM CDT EXAMINATION: TUMOR FDG-PET/CT IMAGING DATE OF STUDY: 05/02/2025 SCANNER: [facility] [employer] (SQ1). This is a high-resolution scanner, which can result in higher SUVs (and even detection of previously unrecognized small lesions) compared to older scanners. RADIOPHARMACEUTICAL: 4.9 mCi F-18 Fluorodeoxyglucose (FDG) i.v. Injection site: Right antecubital HISTORY: 84-year-old woman with history of non-small cell lung cancer post right upper lobectomy in 2018. The study is requested for detection of suspected recurrence. Subsequent treatment strategy. TECHNIQUE: The patient's fasting blood glucose level, measured by glucometer before injection of FDG, was 90 mg/dL. After intravenous administration of FDG, noncontrast CT images were obtained for attenuation correction and for fusion with emission PET images to allow for anatomical localization of PET findings. Emission PET images were then obtained. The study was interpreted on the [employer] workstation. The mean liver SUV (reported for quality control lab technician purposes) is 2.6. The total scanned area was skull vertex to knees. Images of the body were obtained starting 53 minutes after injection of tracer. All reported SUVs are maximum SUVs, unless otherwise specified. COMPARISON: CT chest on 03/13/2025, 03/08/2024 and FDG-PET/CT 01/30/2018 DESCRIPTORS OF LESION FDG AVIDITY: Minimal: <= blood pool Mild: > blood pool and <= liver Moderate: > liver and <= 2x SUVmax liver Moderate to marked: >2x SUVmax liver and <= 3x SUVmax liver Marked: > 3x SUVmax liver FINDINGS: There is a peripheral groundglass opacity in the right lower lobe distal to a nodular focus of marked uptake measuring 3.7 x 3.2 cm with SUV 6.2 on image 149. There are several FDG-avid pulmonary nodules in the right lung, for example a right lower lobe nodule measuring 1.1 x 0.9 cm with SUV of 9.8 on image 106, previously 1.0 x 0.8 cm; this is the most FDG-avid lesion. There is a subcentimeter moderately FDG-avid nodule or pleural deposit posterior to the sternum (image 102) and another smaller lesion in the right lower lobe (image 147). There are several FDG-avid lymph nodes in the mediastinum and left hilum. For example an aortopulmonary window node measuring or 0.8 cm with SUV of 5.3 [address] image 109. Additional CT findings: Bilateral pseudophakia. Carotid artery calcifications. Coronary artery calcifications. Emphysema. Scarring in the left lung apex. Postsurgical changes in the right upper lobe. Left hepatic pneumobilia. Cholecystectomy. Surgical changes in the colon. Hiatal hernia. Calcifications of the abdominal aorta and its branches. Scoliosis. Procedure Note Alejo Lee MD - 05/02/2025 EXAMINATION: TUMOR FDG-PET/CT IMAGING DATE OF STUDY: 05/02/2025 SCANNER: [employer] (SQ1). This is a high-resolution scanner, which can result in higher SUVs (and even detection of previously unrecognized small lesions) compared to older scanners. RADIOPHARMACEUTICAL: 4.9 mCi F-18 Fluorodeoxyglucose (FDG) i.v. Injection site: Right antecubital HISTORY: 84-year-old woman with history of non-small cell lung cancer post right upper lobectomy in 2018. The study is requested for detection of suspected recurrence. Subsequent treatment strategy. TECHNIQUE: The patient's fasting blood glucose level, measured by glucometer before injection of FDG, was 90 mg/dL. After intravenous administration of FDG, noncontrast CT images were obtained for attenuation correction and for fusion with emission PET images to allow for anatomical localization of PET findings. Emission PET images were then obtained. The study was interpreted on the [employer] workstation. The mean liver SUV (reported for quality control lab technician purposes) is 2.6. The total scanned area was skull vertex to knees. Images of the body were obtained starting 53 minutes after injection of tracer. All reported SUVs are maximum SUVs, unless otherwise specified. COMPARISON: CT chest on 03/13/2025, 03/08/2024 and FDG-PET/CT 01/30/2018 DESCRIPTORS OF LESION FDG AVIDITY: Minimal: <= blood pool Mild: > blood pool and <= liver Moderate: > liver and <= 2x SUVmax liver Moderate to marked: >2x SUVmax liver and <= 3x SUVmax liver Marked: > 3x SUVmax liver FINDINGS: There is a peripheral groundglass opacity in the right lower lobe distal to a nodular focus of marked uptake measuring 3.7 x 3.2 cm with SUV 6.2 on image 149. There are several FDG-avid pulmonary nodules in the right lung, for example a right lower lobe nodule measuring 1.1 x 0.9 cm with SUV of 9.8 on image 106, previously 1.0 x 0.8 cm; this is the most FDG-avid lesion. There is a subcentimeter moderately FDG-avid nodule or pleural deposit posterior to the sternum (image 102) and another smaller lesion in the right lower lobe (image 147). There are several FDG-avid lymph nodes in the mediastinum and left hilum. For example an aortopulmonary window node measuring or 0.8 cm with SUV of 5.[address] image 109[address] Additional [address] findings: Bilateral pseudophakia. Carotid artery calcifications. Coronary artery calcifications. Emphysema. Scarring in the left lung apex. Postsurgical changes in the right upper lobe. Left hepatic pneumobilia. Cholecystectomy. Surgical changes in the colon. Hiatal hernia. Calcifications of the abdominal aorta and its branches. Scoliosis. IMPRESSION: 1. Several FDG-avid pulmonary nodules in the right lung with moderate to intense uptake compatible with malignancy. 2. Right posterior lower lobe nodule with more distal groundglass opacity with marked uptake favored to represent a postobstructive inflammatory/infectious process. 3. Hypermetabolic mediastinal and left hilar lymph nodes favored to represent metastases. Dictated by: Alvin Ramirez M.D. The radiology attending physician has personally reviewed this study, and had reviewed and/or edited this written report and agrees with it. Electronically signed by: Alejo Lee M.D. Hannah Andres NP IMG PET PROCEDURES Final Result * CT Chest WO Contrast (03/13/2025 9:07 AM CDT) Anatomical Region Laterality Modality Body N/A Computed Tomogra phy 04/04/2025 5:17 PM CDT Narrative 04/04/2025 5:26 PM CDT EXAM DESCRIPTION: CT CHEST WO CONTRAST REASON FOR STUDY: Non-small cell lung cancer (NSCLC), non-metastatic, assess treatment response Annual lung cancer f/u. No complaints. Previous right upper lobectomy. TECHNIQUE: CT scan of the chest performed without intravenous contrast using helical scanning technique. Reconstructed coronal and sagittal MPR images reviewed. All images stored on PACS. Automated exposure control was used as a dose optimization technique for this examination. COMPARISON: 03/08/2024 , 5 CTs since 08/15/2018 in addition. FINDINGS: The sensitivity for detection of solid visceral lesions is diminished without the use of intravenous contrast. In the right lung in the posterior right lower lobe on image number 39 is an irregular lobulated lesion that measures about 10 x 8 mm this is larger than previous study of 4 mm. This certainly could represent a new primary lesion or metastatic lesion. PET-CT recommended or tissue sampling. In the lungs there is reticular and ground-glass opacities consistent with chronic lung disease and fibrosis. This pattern is unchanged over several studies. Postoperative scarring is seen in the posterior right upper lobe and some linear fibrotic changes seen in the anteromedial right middle lobe similar to prior. Small nodule in the periphery of the left lower lobe measures about 3 mm unchanged in stable. There is particularly prominent reticulation of the interstitium in the left upper lobe also chronic likely related to fibrosis. Mediastinal window images show heavy calcification of the arch and coronary arteries. Cardiac chambers normal. No ascending aortic aneurysm. Esophagus normal. Small hiatal hernia. Upper abdomen shows pneumobilia in the branches unchanged. Surgical clips gallbladder fossa IMPRESSION: Nodule in the right upper lobe has increased in size since previous study, recurrent tumor or metastatic disease, new primary should be ruled out. Consider percutaneous biopsy or PET-CT for further assessment. Otherwise stable THIS IS AN ELECTRONICALLY VERIFIED FINAL REPORT 04/04/2025 5:26 PM - Electronically signed by Zhou Love M.D. DA: JOON Report ID: [id number] Reading Location: [place] [address] Procedure Note Zhou Love MD - 04/04/2025 EXAM DESCRIPTION: CT CHEST WO CONTRAST REASON FOR STUDY: Non-small cell lung cancer (NSCLC), non-metastatic,assess treatment response Annual lung cancer f/u. No complaints. Previous right upper lobectomy. TECHNIQUE: CT scan of the chest performed without intravenous contrastusing helical scanning technique. Reconstructed coronal and sagittal MPR images reviewed. All images stored on PACS. Automated exposure control was usedas a dose optimization technique for this examination. COMPARISON: 03/08/2024 , 5 CTs since 08/15/2018 in addition. FINDINGS: The sensitivity for detection of solid visceral lesions is diminished without the use of intravenous contrast. In the right lung in the posterior right lower lobe on image number 39 isan irregular lobulated lesion that measures about 10 x 8 mm this is largerthan previous study of 4 mm. This certainly could represent a new primarylesion or metastatic lesion. PET-CT recommended or tissue sampling. In thelungs there is reticular and ground-glass opacities consistent with chronic lung disease and fibrosis. This pattern is unchanged over several studies. Postoperative scarring is seen in the posterior right upper lobe and some linear fibrotic changes seen in the anteromedial right middle lobe similarto prior. Small nodule in the periphery of the left lower lobe measuresabout 3 mm unchanged in stable. There is particularly prominent reticulation ofthe interstitium in the left upper lobe also chronic likely related tofibrosis. Mediastinal window images show heavy calcification of the arch andcoronary arteries. Cardiac chambers normal. No ascending aortic aneurysm.Esophagus normal. Small hiatal hernia. Upper abdomen shows pneumobilia in the branches unchanged. Surgical clips gallbladder fossa IMPRESSION: Nodule in the right upper lobe has increased in size since previous study, recurrent tumor or metastatic disease, new primary shouldbe ruled out. Consider percutaneous biopsy or PET-CT for further assessment. Otherwise stable THIS IS AN ELECTRONICALLY VERIFIED FINAL REPORT 04/04/2025 5:26 PM - Electronically signed by Zhou Love M.D. DA: JOON Report ID: [id number] Reading Location: [place] [address] Hannah Andres NP IMG [address] PROCEDURES Final Result from Last 3 Months Insurance MEDICARE BLUE CROSS MEDICARE SUPPLEMENT MEDICARE [facility] MEDICARE [facility] MEDICARE SUPPLEMENT Advance Directives For more information, please contact: [phone] * Full Code (Latest Code Status on File) Date Activated Date Inactivated Comments 03/05/2018 12:43 PM 03/09/2018 5:55 PM Care Teams Osteopathic Resident Relationship Specialty Start Date End Date Unknown, Notinfile PCP - General 03/05/25
--- OUTSIDE RECORDS SUMMARY | 2025-05-30 10:27 | XMS_ITS | Clinical Summary ---
Author Organization [facility] Address [address] [place] [address] Care Team Providers Care Air Drill Operator Name Role Phone Unavailable Primary Care Provider Unavailabl e Source Comments [facility],non-owned Affiliates and Associated Physician Practices is amultiple site organization consisting of ambulatory clinics and hospital sitesin [place], [place], [place] and [place]. This disclosure is being madepursuant to the Care Everywhere program and may not contain all information available regarding this patient. Last updated 18.[facility] [place] Social History Tobacco Use Types Packs/Day Years Used Date Smoking Tobacco: Never Assessed Comments Unknown Sex and Gender Information Value Date Recorded Sex Assigned at Not on file Legal Sex Female 6:33 PM SPARE HAND Gender Identity Not on file Sexual [...] yrs (1 - 1-dose 75+ series) 2017 DEPRESSION SCREENING 08/28/2024 COVID-19 VACCINE ( - 2023-2 5 season) 2025 INFLUENZA VACCINE (#1) 2025 HEPATITIS B VACCINE Aged Out No longe [...] on patient's age to complete this topic Insurance MEDICARE [facility]
--- OUTSIDE RECORDS SUMMARY | 2025-05-30 10:27 | XMS_ITS | Encounter Summary ---
Author Organization [facility] Address [address] [place] [address] Care Team Providers Care Steel Pourer Helper Name Role Phone Valery Walter MD Primary Care Provider Unavail able Encounter Details Date Type Department Care Team (Late st Contact Info) Description 11/07/2007 Orders Only [facility] Family Medicine [facility] [address] [place] [address] Katey Orantes MD [address] [place] [id number] Social History Tobacco Use Types Packs/Day Years Used Date Smoking Tobacco: Never Assessed Comments Unknown Sex and Gender Information Value Date Recorded Sex Assigned at Not on file 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 CHIEF COMPLAINT cyst on left foot.[facility] HISTORY: HISTORY OF PRESENT ILLNESS: Pt is [...] on filedocumented in this encounter Care Teams Steel Pourer Helper Relationship Specialty Start Date End Date Valery Walter MD NO ADDRESS ON FILE PCP - General 05/26/06 08/05/19 documented as of this encounter
--- OUTSIDE RECORDS SUMMARY | 2025-05-30 10:27 | XMS_ITS ---
Author Organization [facility] Address [address] [place] [address] Care Team Providers Care Tile Conduit Layer Name Role Phone Unknown, Notinfile Primary Care Provider Unavail able Active Problems Problem Noted Date Diagnosed Date Pulmonary nodule 05/02/2025 Mass of upper lobe of right lung 03/01/2018 Overview (03/01/2018): Added automatically from request for surgery [id number] Lung cancer 02/20/2018 Choledocholithiasis 01/08/2018 Abnormal findings [...] Dose Automatic Entry Manual Entr y DLP 1,474 mGycm 1,474 mGycm 0 mGycm
--- OUTSIDE RECORDS SUMMARY | 2025-05-30 10:27 | XMS_ITS | Encounter Summary ---
Author Organization [facility] Address [address] [place] [address] Care Team Providers Care Birthing Nurse Name Role Phone Valery Walter MD Primary Care Provider Unavail able Encounter Details Date Type Department Care Team (Late st Contact Info) Description 11/07/2007 Outpatient Historical [facility] Family Medicine Cassandra Navin [address] [address] [place] [address] [place] [address] [address] [place] [address] Social History Tobacco Use Types Packs/Day Years Used Date Smoking Tobacco: Never Assessed Comments Unknown Sex and Gender Information Value Date Recorded Sex Assigned at Not on file 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
--- OUTSIDE RECORDS SUMMARY | 2025-05-30 10:27 | XMS_ITS | Encounter Summary ---
Author Organization [facility] Address [address] [address] Care Team Providers Care Drapery Installer Name Role Phone Unavailable Primary Care Provider Unavailabl e Encounter Details Date Type Department Care Team (Late st Contact Info) Description 03/24/2022 Lab Requisition [facility] [address], [place] [address] Yusuf Alas MD [address] [place] [id number] Social History Tobacco Use Types Packs/Day Years Used Date Smoking Tobacco: Never Assessed Comments Unknown Sex and Gender Information Value Date Recorded Sex Assigned at Not on file Legal Sex Female 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 Gender Identity Not on file Sexual Orientation Not on file documented as of this encounter Plan of Treatment Not on file documented as of this encounter Procedures Procedure Name Priority Date/Time Associated Diagnosis Comments DERMATOPATHOLOGY Routine 03/23/2022 3:33 AM CDT documented in this encounter Results * DERMATOPATHOLOGY (03/23/2022 3:33 AM CDT) Case Report Dermatopathology Report Case: [id number] Authorizing Provider: Yusuf Alas MD Collected: 03/23/2022 03:33 AM Ordering Location: [facility] Received: 03/24/2022 04:51 PM Pathologist: Hannah Laguerre MD Specimen: Skin, left hand 1:33 PM CDT DERMATOPATHOLOGY LABORATORY Final Diagnosis Specimen A. SKIN, left hand: SQUAMOUS CELL CARCINOMA IN SITU, PRESENT AT THE BASE OF THE SPECIMEN (D04.62) (see microscopic description and comment) 08/01/202 2 1:33 PM CDT DERMATOPATHOLOGY LABORATORY at 1333 CDT Clinical History BCCA vs. Other. Path# [id number] 2 1:33 PM CDT DERMATOPATHOLOGY LABORATORY Gross Description Specimen A: Received is one formalin filled container labeled with the patient's name and designated left hand. The specimen consists of a shave biopsy measuring [id number]. Jar 0. 2 1:33 PM CDT DERMATOPATHOLOGY [...] characteristic determined by the Dermatopathology Laboratory at [facility], directed by Dr. Lazaro Whitlock. These tests need not be, and therefore are not, approved by the [place] Food and Drug Administration. The tests are used for clinical purposes. Billing Codes Specimen Charges Stain Charges 10363 1 2 1:33 PM CDT DERMATOPATHOLOGY LABORATORY Embedded Images 2 1:33 PM CDT DERMATOPATHOLOGY LABORATORY Pathology/Cytolo gy TISSUE SPECIMEN FROM SKIN / Unknown 03/23/2022 3:33 AM CDT 03/24/2022 4:51 PM CDT us Yusuf Alas MD LAB - PATHOLOGY/CYTOLOGY ORDER JAMA Final Result DERMATOPATHOLOGY LABORATORY [facility] - Department of Dermatology [address] [place] [address], [facility] [phone] documented in this encounter Visit Diagnoses Not on filedocumented in this encounter
--- OUTSIDE RECORDS SUMMARY | 2025-05-30 10:27 | XMS_ITS | Encounter Summary ---
Author Organization [facility] Address [address] [place] [address] Care Team Providers Care Net Developer Programmer Name Role Phone Valery Walter MD Primary Care Provider Unavail able Encounter Details Date Type Department Care Team (Late st Contact Info) Description 11/26/2007 Outpatient Historical [facility] Family Medicine [facility] [address] [address] [place] [address] Paige Prado MD [address] [place] [address] Social History Tobacco Use Types Packs/Day Years Used Date Smoking Tobacco: Never Assessed Comments Unknown Sex and Gender Information Value Date Recorded Sex Assigned at Not on file 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 PMP Gender Identity Not on file Sexual Orientation Not on file documented as of this encounter Plan of Treatment Not on file documented as of this encounter Visit Diagnoses Not on filedocumented in this encounter Care Teams Net Developer Programmer Relationship Specialty Start Date End Date Valery Walter MD NO ADDRESS ON FILE PCP - General 05/26/06 08/05/19 documented as of this encounter
--- OUTSIDE RECORDS SUMMARY | 2025-05-30 10:27 | XMS_ITS | Encounter Summary ---
Author Organization [facility] Address [address] [place] [address] Care Team Providers Care Mushroom Grower Name Role Phone Valery Walter MD Primary Care Provider Unavail able Encounter Details Date Type Department Care Team (Late st Contact Info) Description 11/26/2007 Outpatient Historical [facility] Family Medicine Cassandra Navin [address] [address] [place] [address] [place] [address] [address] [place] [address] Social History Tobacco Use Types Packs/Day Years Used Date Smoking Tobacco: Never Assessed Comments Unknown Sex and Gender Information Value Date Recorded Sex Assigned at Not on file 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
--- OUTSIDE RECORDS SUMMARY | 2025-05-30 10:27 | XMS_ITS | Encounter Summary ---
Author Organization [facility] Address [address] [place] [address] Care Team Providers Care Plumber Gasfitter Name Role Phone Unavailable Primary Care Provider Unavailabl e Encounter Details Date Type Department Care Team (Late st Contact Info) Description 08/03/2022 Lab Requisition [facility] D[facility] Lab [address], [place] [address] Yusuf Alas MD [address] [place] [address] Social History Tobacco Use Types Packs/Day Years Used Date Smoking Tobacco: Never Assessed Comments Unknown Sex and Gender Information Value Date Recorded Sex Assigned at Not on file Legal Sex Female 6:33 PM BLEACHER KRAFT PULP Gender Identity Not on file Sexual Orientation Not on file documented as of this encounter Plan of Treatment Not on file documented as of this encounter Procedures Procedure Name Priority Date/Time Associated Diagnosis Comments DERMATOPATHOLOGY Routine 08/02/2022 12:0 0 AM BLEACHER KRAFT PULP documented in this encounter Results * DERMATOPATHOLOGY (08/02/2022 12:00 AM BLEACHER KRAFT PULP) Case Report Dermatopathology Report Case: [id number] Authorizing Provider: Yusuf Alas MD Collected: 08/02/2022 12:00 AM Ordering Location: [facility]erm[facility] Lab Received: 08/03/2022 05:56 AM Pathologist: Maximo Whitlock MD Specimen: Skin, left hand 2 2:19 PM BLEACHER KRAFT PULP DERMATOPATHOLOGY LABORATORY Final Diagnosis Specimen A. SKIN, left hand: SQUAMOUS CELL CARCINOMA, WELL DIFFERENTIATED (C44.629) 2 2:19 PM BLEACHER KRAFT PULP DERMATOPATHOLOGY LABORATORY at 1419 BLEACHER KRAFT PULP Clinical History R/O Recurren SCCA vs Cyst Path#[id number] 2 2:19 PM BLEACHER KRAFT PULP DERMATOPATHOLOGY LABORATORY Gross Description Specimen A: Received is one formalin filled container labeled with the patient's name and designated left hand. The specimen consists of a shave biopsy measuring 6x5x2 mm. Jar 0. 2 2:19 PM [facility] DERMATOPATHOLOGY LABORATORY Microscopic Description Specimen A. SKIN, left hand: Arising in the epidermis and extending into the dermis there are irregularly shaped aggregates of keratinocytes showing evidence of premature cornification. 2 2:19 PM BLEACHER KRAFT PULP DERMATOPATHOLOGY LABORATORY Disclaimer An external and internal positive and negative controls are appropriate for the histochemical, immunohistochemical and immunofluorescence stain(s) in this case (if any), except where stated explicitly. The performance characteristics of the stain(s) cited in this report were developed and its performance characteristic determined by the Dermatopathology Laboratory at [facility], directed by Dr. Lazaro Whitlock. These tests need not be, and therefore are not, approved by the [place] Food and Drug Administration. The tests are used for clinical purposes. Billing Codes Specimen Charges Stain Charges 12059 1 2 2:19 PM BLEACHER KRAFT PULP DERMATOPATHOLOGY LABORATORY Embedded Images 2 2:19 PM BLEACHER KRAFT PULP DERMATOPATHOLOGY LABORATORY Pathology/Cytolog y TISSUE SPECIMEN FROM SKIN / Unknown 08/02/2022 08/03/2022 5:56 AM BLEACHER KRAFT PULP us Yusuf Alas MD LAB - PATHOLOGY/CYTOLOGY ORDER JAMA Final Result DERMATOPATHOLOGY LABORATORY [facility] - Department of Dermatology [address] [place] [address], [facility] [phone] documented in this encounter Visit Diagnoses Not on filedocumented in this encounter
--- OUTSIDE RECORDS SUMMARY | 2025-05-30 10:27 | XMS_ITS | Clinical Summary ---
Author Organization [facility] Address [address] [place] [address] Phone Care Team Providers Care Six Pack Loader Operator Name Role Phone Unavailable Primary Care Provider Unavailabl e Allergies Active Allergy Reactions Criticality Noted Date Comments Atorvastatin Nausea and Vomiting Low 02/18/2009 Simvastatin Nausea and Vomiting Low 02/18/2009 Medications aspirin (JAZMIN) 81 mg Oral Tab Take 81 mg by mouth daily. Active Calcium Carbonate-Vit D3-Min (CALTRATE PLUS) 600-400 mg-unit Oral Tab Take by mouth daily. Active [id number] a-fish oil (OMEGA 3) 350-400 mg Oral Cap Take by mouth. Active pravastatin (PRAVACHOL) 40 mg tablet TAKE ONE TABLET BY MOUTH EVERY DAY AT BEDTIME 90 Tab 1 12/11/2013 Active Active Problems Problem Noted Date Diagnosed Date Dry eye syndrome 06/24/2013 History of colon cancer 04/24/2012 Overview (04/24/2012): 08/26/[address] 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 16 nodes negative Personal history of tobacco use, [...] on file 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 USER EXPERIENCE DEVELOPER Gender Identity Not on file Sexual Orientation Not on file Occupation Industry Job Start Date Job End Date Not on file Not on file Not on file Not on file Last Filed Vital Signs Vital Sign Reading Time Taken Comments Blood Pressure 130/76 06/24/2013 9:29 AM CDT Pulse 62 06/24/2013 9:29 AM CDT Temperature 36.4 C (97.5 F) 08/17/2011 9:29 AM USER EXPERIENCE DEVELOPER Respiratory Rate 18 08/17/2011 9:47 AM USER EXPERIENCE DEVELOPER Oxygen Saturation 99% 08/17/2011 9:47 AM USER EXPERIENCE DEVELOPER Inhaled Oxygen Concentration - - Weight 61.7 kg (136 lb) 06/24/2013 9:29 AM CDT Height 154.9 cm (5' 1) 06/24/2013 9:29 AM CDT Body Mass Index 25.7 06/24/2013 9:29 AM CDT Plan of Treatment Health Maintenance Due Date Last Done Comments ZOSTER VACCINE (1 of 2) 1992 DTAP/TDAP/TD VACCINES (1 - Tdap) 04/26/2005 04/25/20 05 PNEUMOCOCCAL VACCINE 50+ YEA RS (2 of 2 - PCV) 02/18/2010 02/18/2009 RSV VACCINE (60+ or ) (1 - 1-dose 75+ series) 2017 OSTEOPOROSIS SCREENING 07/05/2018 07/05/2013 INFLUENZA VACCINE (#1) 2025 06/24/2013, 2010 Procedures Procedure Name Priority Date/Time Associated Diagnosis Comments XR DEXA BONE DENSITY AXIAL 1 OR MORE SITES Routine 07/05/2013 9:50 AM USER EXPERIENCE DEVELOPER Postmenopausal status from Last 3 Months or Most Recently Relevant to Health Maintenance Results * XR DEXA BONE DENSITY AXIAL 1 OR MORE SITES (07/05/2013 9:50 AM USER EXPERIENCE DEVELOPER) Anatomical Region Laterality Modality Digital Radiogra phy 07/05/2013 9:30 AM USER EXPERIENCE DEVELOPER Narrative 07/05/2013 9:56 AM USER EXPERIENCE DEVELOPER XR DEXA BONE DENSITY AXIAL 1 OR MORE SITES Dictated from Location 1 ([facility]) HISTORY: 73 yo F with postmenopausal symptoms on calcium supplementation needing evaluation for osteoporosis. PROCEDURE: Using a [employer] dual energy x-ray absorptiometry system, the patient's [...] studies are available for comparison. Procedure Note Feliberto Feliciano, DO - 07/05/2013 XR DEXA BONE DENSITY AXIAL 1 OR MORE SITES Dictated from Location 1 ([facility]) HISTORY: 73 yo F with postmenopausal symptoms on calcium supplementation needing evaluation for osteoporosis. PROCEDURE: Using a [employer] dual energy x-ray absorptiometry system, the patient's [...] prior DEXA studies are available for comparison. aVlery Walter MD DIAGNOSTIC IMAGING ORDERABLES Final Result from Last 3 Months or Most Recently Relevant to Health Maintenance Insurance MEDICARE PART A AND B [facility] SUPP Advance Directives For more information, please contact: [phone] * Full Code (Latest Code Status on [...]
--- OUTSIDE RECORDS SUMMARY | 2025-05-30 10:27 | XMS_ITS | Encounter Summary ---
Author Organization [facility] Address 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 LAWN TECHNICIAN Gender Identity Not on file Sexual [...] CDT) CHOLESTEROL 175 100 - 199 mg/dL [facility] CHOL/HDL RATIO 3.7 2.0 - 5.0 [facility] TRIGLYCERIDE 106 10 - 149 mg/dL [facility] HDL 47 40 - 59 mg/dL [facility] LDL CALCULATED 107(H) <=99 mg/dL [facility] LIPID PANEL COMMENT See Below [facility] Comment: The adult ATP and pediatric NCEP classifications for lipids are available on the [facility] Intranet at: [email or web address] Select: Lab Policies and Procedures,Current Select: Lipid Panel Interpretation Blood specimen (specimen) 11/26/2007 9:04 AM CDT 11/26/2007 12:52 PM CDT Valery Walter MD CHEMISTRY ORDERABLES Edited Performing Organization Address City/[facility]/ZIP Co de Phone Number [facility] [address] [place] [address] * HEPATIC FUNCTION PANEL (11/26/2007 9:04 AM CDT) ALBUMIN 4.2 3.4 - 4.8 g/dL [facility] ALT 29 0 - 31 U/L [facility] BILIRUBIN TOTAL 0.3 0.2 - 1.0 mg/dL [facility] ALKALINE PHOSPHATASE 95 35 - 104 U/L [facility] BILIRUBIN DIRECT 0.1 0.0 - 0.3 mg/dL [facility] TOTAL PROTEIN 7.1 6.3 - 8.6 g/dL [facility] AST 24 12 - 32 U/L [facility] Blood specimen (specimen) 11/26/2007 9:04 AM CDT 11/26/2007 12:52 PM CDT us Valery Walter MD CHEMISTRY ORDERABLES Final Res ult Performing Organization Address City/[facility]/ZIP Co de Phone Number [facility] [address] [place] [address] documented in this encounter Visit Diagnoses Diagnosis Vaginitis and vulvovaginitis, unspecified Pure hypercholesterolemia documented in this encounter Care Teams Heat Treat Technician Relationship Specialty Start Date End Date Valery Walter MD NO ADDRESS ON FILE PCP - General 05/26/06 08/05/19 documented as of this encounter
--- OUTSIDE RECORDS SUMMARY | 2025-05-30 10:28 | XMS_ITS | Encounter Summary ---
Author Organization [facility] Address [address] [place] [address] Care Team Providers Care Grain Elevator Agent Name Role Phone Valery Walter MD Primary Care Provider Unavail able Encounter Details Date Type Department Care Team (Late st Contact Info) Description 04/25/2005 Outpatient Historical [facility] Family Medicine [facility] [address] [place] [phone] Magdi Calderón Social History Tobacco Use Types Packs/Day Years Used Date Smoking Tobacco: Never Assessed Comments Unknown Sex and Gender Information Value Date Recorded Sex Assigned at Not on file 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 SLITTER SCORER CUT OFF OPERATOR Gender Identity Not on file Sexual Orientation Not on file documented as of this encounter Plan of Treatment Not on file documented as of this encounter Visit Diagnoses Not on filedocumented in this encounter Care Teams Grain Elevator Agent Relationship Specialty Start Date End Date Valery Walter MD NO ADDRESS ON FILE PCP - General 05/26/06 08/05/19 documented as of this encounter
--- OUTSIDE RECORDS SUMMARY | 2025-05-30 10:28 | XMS_ITS | Encounter Summary ---
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 ALTERNATIVE PHONE NUMBER: [phone] WHO CALLED: Patient called. PHARMACY NUMBER: [phone] PROBLEMS: COUGH:Patient complains of cough. The symptoms began approximately 3 weeks ago. Will not go away, OTC did not work SECTION 1: RN/TURRET LATHE SET UP OPERATOR RESPONSE: [email or web address] 08/07/06 at 03:22 pm spoke with pt....states she has a dry tickling coughfor the past 3 weeks. Denies fever, cold sx's, congestion, wheezing or SOB. States she feels fine except she is tired from cough. States it interferes with her sleep. Has tried several OTC w/o relief. Requesting cough Rx. No allergies. Ana Rosa DOCTOR`S RESPONSE: jak 08/07/06 at 04:43 pm MEDICATIONS: Call in to Pharmacy [facility] TABLET 10-300 MG, one tab po q4 hours prn, 30 Dispensed, 10 Duration/Days Supply, status: NEW PRESCRIPTION, 08/07/2006. generic is fine. Can you call this in for me? thanks. [facility] SECTION 2: 08-08-06 Called in RX. done [place] Electronically Signed by: Austin Seth on Tuesday, August 08, 2006 documented in this encounter Plan of Treatment Not on file documented as of this encounter Visit Diagnoses Not on filedocumented in this encounter Care Teams Clerical Proofreader Relationship Specialty Start Date End Date Valery Walter MD NO ADDRESS ON FILE PCP - General 05/26/06 08/05/19 documented as of this encounter
--- OUTSIDE RECORDS SUMMARY | 2025-05-30 10:28 | XMS_ITS | Encounter Summary ---
Author Organization [facility] Address [address] [place] [address] Care Team Providers Care Account Resolution Analyst Name Role Phone Valery Walter MD Primary Care Provider Unavail able Encounter Details Date Type Department Care Team (Late st Contact Info) Description 09/13/2006 Outpatient Historical [facility] Family Medicine [facility] [address] [place] [address] [place] [address] [place] [address] Social History Tobacco Use Types Packs/Day Years Used Date Smoking Tobacco: Never Assessed Comments Unknown Sex and Gender Information Value Date Recorded Sex Assigned at Not on file 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 TEACHER Gender Identity Not on file Sexual Orientation Not on file documented as of this encounter Last Filed Vital Signs Vital Sign Reading Time Taken Comments Blood Pressure 130/84 09/13/2006 4:00 PM CLIMATOLOGY TEACHER Pulse 68 09/13/2006 4:00 PM CLIMATOLOGY TEACHER Temperature - - Respiratory Rate - - Oxygen Saturation - - Inhaled Oxygen Concentration - - Weight 65.8 kg (145 lb) 09/13/2006 4:00 PM CLIMATOLOGY TEACHER Height - - Body Mass Index 27.62 05/26/2006 10:00 AM CDT documented in this encounter Plan of Treatment Not on file documented as of this encounter Visit Diagnoses Not on filedocumented in this encounter Care Teams Account Resolution Analyst Relationship Specialty Start Date End Date Valery Walter MD NO ADDRESS ON FILE PCP - General 05/26/06 08/05/19 documented as of this encounter
--- OUTSIDE RECORDS SUMMARY | 2025-05-30 10:28 | XMS_ITS | Encounter Summary ---
Author Organization [facility] Address [address] [place] [address] Care Team Providers Care Scribing Machine Operator Name Role Phone Valery Walter MD Primary Care Provider Unavail able Encounter Details Date Type Department Care Team (Late st Contact Info) Description 07/17/[address] [facility] Family Medicine [facility] [address] [place] [address] [place] [address] [address] [place] [address] Social History Tobacco Use Types Packs/Day Years Used Date Smoking Tobacco: Never Assessed Comments Unknown Sex and Gender Information Value Date Recorded Sex Assigned at Not on file 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 MATERIAL MOVERS Gender Identity Not on file Sexual Orientation Not on file documented as of this encounter Last Filed Vital Signs Vital Sign Reading Time Taken Comments Blood Pressure 120/72 07/17/2006 4:30 PM MATERIAL MOVERS Pulse 74 07/17/2006 4:30 PM MATERIAL MOVERS Temperature - - Respiratory Rate - - Oxygen Saturation - - Inhaled Oxygen Concentration - - Weight 66.7 kg (147 lb) 07/17/2006 4:30 PM MATERIAL MOVERS Height - - Body Mass Index 28 05/26/2006 10:00 AM CDT documented in this encounter Plan of Treatment Not on file documented as of this encounter Visit Diagnoses Not on filedocumented in this encounter Care Teams Scribing Machine Operator Relationship Specialty Start Date End Date Valery Walter MD NO ADDRESS ON FILE PCP - General 05/26/06 08/05/19 documented as of this encounter
--- OUTSIDE RECORDS SUMMARY | 2025-05-30 10:28 | XMS_ITS | Encounter Summary ---
Author Organization [facility] Address [address] [place] [address] Care Team Providers Care Painting Manager Name Role Phone Valery Walter MD Primary Care Provider Unavail able Encounter Details Date Type Department Care Team (Late st Contact Info) Description 04/25/2005 Outpatient Historical [facility] Family Medicine [facility] [address] [place] [address] Magdi Calderón Social History Tobacco Use Types Packs/Day Years Used Date Smoking Tobacco: Never Assessed Comments Unknown Sex and Gender Information Value Date Recorded Sex Assigned at Not on file 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
--- OUTSIDE RECORDS SUMMARY | 2025-05-30 10:28 | XMS_ITS | Encounter Summary ---
Author Organization [facility] Address [address] [place] [address] Care Team Providers Care Agency Director Name Role Phone Osman Matson MD Primary Care Provider [phone] Jessica Moeller NP Primary Care Provider [phone] Anamika South WEED CONTROL INSPECTOR Primary Care Provider + Unknown, Notinfile Primary Care Provider Unavail able Encounter Details Date Type Department Care Team (Late st Contact Info) Description 02/27/2018 Telephone [facility] Anesthesia [address] [place] [address] Vashti Nelson, CHARLEY [address] [address] Social History Tobacco Use Types Packs/Day Years Used Date Smoking Tobacco: Former Cigarettes 2 38 0 08/28/1961 - 08/28/1999 Smokeless Tobacco: Never Alcohol Use Standard Drinks/Week Comments Yes 0 (1 standard drink = 0.6 oz pur e alcohol) Occassional glass of wine. Comments No Sex and Gender Information Value Date Recorded Sex Assigned at Not on file Legal Sex Female 6:33 AM CLAY BURNER Gender Identity Female 12/09/2020 1:34 PM CDT Sexual Orientation Straight 12/09/2020 1: 34 PM CDT documented as of this encounter Plan of Treatment Not on file documented as of this encounter Visit Diagnoses Not on filedocumented in this encounter Care Teams Agency Director Relationship Specialty Start Date End Date Osman Matson MD [address] [place] [address] PCP - General 06/30/17 12/07/21 Jessica Moeller NP [address] [place] [address] PCP - General Family Medicine 12/08/21 11/27/23 Anamika South NP [address] [place] [address] [address] [place], [place] [id number] PCP - General Nurse Practitioner 11/28/23 03/04/25 Unknown, Notinfile PCP - General 03/05/25 documented as of this encounter
--- OUTSIDE RECORDS SUMMARY | 2025-05-30 10:28 | XMS_ITS | Encounter Summary ---
Author Organization [facility] Address [address] [place] [address] Care Team Providers Care Biztalk Developer Name Role Phone Valery Walter MD Primary Care Provider Unavail able Encounter Details Date Type Department Care Team (Late st Contact Info) Description 09/13/2006 Orders Only [facility] Family Medicine [facility] [address] [place] [address] [place] [address] [place] [address] Social History Tobacco Use Types Packs/Day Years Used Date Smoking Tobacco: Never Assessed Comments Unknown Sex and Gender Information Value Date Recorded Sex Assigned at Not on file 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
--- OUTSIDE RECORDS SUMMARY | 2025-05-30 10:28 | XMS_ITS | Encounter Summary ---
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 ALTERNATIVE PHONE NUMBER: [phone] WHO CALLED: Patient called. CURRENT ALLERGY LIST: none PHARMACY NUMBER: [phone] SECTION 1: REQUESTED ACTION valerie 02/20/07 at [...] on filedocumented in this encounter Care Teams Inspector Cold Working Relationship Specialty Start Date End Date Valery Walter MD NO ADDRESS ON FILE PCP - General 05/26/06 08/05/19 documented as of this encounter
--- OUTSIDE RECORDS SUMMARY | 2025-05-30 10:28 | XMS_ITS | Encounter Summary ---
Author Organization [facility] Address [address] [place] [address] Phone Care Team Providers Care Associate Professor Of Biblical Studies Name Role Phone Unknown, Notinfile Primary Care Provider Unavail able Encounter Details Date Type Department Care Team (Late st Contact Info) Description 04/22/2025 Documentation [facility] Medicine Surgery [facility] Floor [address] [place] [address] [place] Social History Tobacco Use Types Packs/Day Years Used Date Smoking Tobacco: Former Cigarettes 2 38 0 08/28/1961 - 08/28/1999 Smokeless Tobacco: Never Alcohol Use Standard Drinks/Week Comments Yes 0 (1 standard drink = 0.6 oz pur e alcohol) Occassional glass of wine. Comments No Sex and Gender Information Value Date Recorded Sex Assigned at Not on file Legal Sex Female 6:33 AM AUTOMOTIVE SERVICE MANAGER Gender Identity Female 12/09/2020 1:34 PM CDT Sexual Orientation Straight 12/09/2020 1: 34 PM CDT documented as of this encounter Plan of Treatment Not on file documented as of this encounter Visit Diagnoses Not on filedocumented in this encounter Care Teams Associate Professor Of Biblical Studies Relationship Specialty Start Date End Date Unknown, Monico PCP - General 03/05/25 documented as of this encounter
--- OUTSIDE RECORDS SUMMARY | 2025-05-30 10:28 | XMS_ITS | Encounter Summary ---
Author Organization [facility] Address [address] [facility] Attn: [place] [address] Care Team Providers Care Visual Stylist Name Role Phone Valery Walter MD Primary Care Provider Unavail able Encounter Details Date Type Department Care Team (Latest Contact Info) Description 07/17/2006 Orders Only Paige Prado MD [address] [place] [phone] Social History Tobacco Use Types Packs/Day Years Used Date Smoking Tobacco: Never Assessed Comments Unknown Sex and Gender Information Value Date Recorded Sex Assigned at Not on file 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 LAB ORDERS: Order number: [id number] Test Ordered: LIPID PANEL 1078 Order number: [id number] Test Ordered: AST 1119 RETURN VISIT: Patient [...] filedocumented in this encounter Care Teams Visual Stylist Relationship Specialty Start Date End Date Valery Walter MD NO ADDRESS ON FILE PCP - General 05/26/06 08/05/19 documented as of this encounter
--- OUTSIDE RECORDS SUMMARY | 2025-05-30 10:28 | XMS_ITS | Encounter Summary ---
Author Organization [facility] Address [address] [place] [address] Care Team Providers Care Engineering Programmer Name Role Phone Valery Walter MD Primary Care Provider Unavail able Encounter Details Date Type Department Care Team (Late st Contact Info) Description 05/26/2006 Outpatient Historical [facility] Family Medicine [facility] [address] [address] [facility] [address] [place] [address] Valery Walter MD NO ADDRESS ON FILE Social History Tobacco Use Types Packs/Day Years Used Date Smoking Tobacco: Never Assessed Comments Unknown Sex and Gender Information Value Date Recorded Sex Assigned at Not on file 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 BUTCHER'S ASSISTANT Gender Identity Not on file Sexual Orientation [...] 10:00 AM CDT Height 154.3 cm (5' 0.75) 05/26/2006 10:00 AM C DT Body Mass Index 27.43 05/26/2006 10:00 AM CDT documented in this encounter Plan of Treatment Not on file documented as of this encounter Visit Diagnoses Not on filedocumented in this encounter Care Teams Engineering Programmer Relationship Specialty Start Date End Date Valery Walter MD NO ADDRESS ON FILE PCP - General 05/26/06 08/05/19 documented as of this encounter
--- OUTSIDE RECORDS SUMMARY | 2025-05-30 10:28 | XMS_ITS | Encounter Summary ---
Author Organization [facility] Address [address] [place] [address] Care Team Providers Care Library Technology Instructor Name Role Phone Valery Walter MD Primary Care Provider Unavail able Encounter Details Date Type Department Care Team (Latest Contact Info) Description 09/05/2006 Outpatient Historical [facility] Family Medicine [facility] [address] [place] [address] [place] [address] [address] [place] [address] Other and Unspecified Hyperlipidemia (Primary Dx) Social History Tobacco Use Types Packs/Day Years Used Date Smoking Tobacco: Never Assessed Comments Unknown Sex and Gender Information Value Date Recorded Sex Assigned at Not on file 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 RNP Gender Identity Not on file Sexual Orientation Not on file documented as of this encounter Plan of Treatment Not on file documented as of this encounter Procedures Procedure Name Priority Date/Time Associated Diagnosis Comments AST Routine 09/05/2006 7:27 AM RNP LIPID PANEL Routine 09/05/2006 7:27 AM RNP documented in this encounter Results * AST (09/05/2006 7:27 AM RNP) AST 20 12 - 32 U/L INTERFAC E SYSTEM 09/05/2006 7:27 AM RNP Genaro Reynoso MD CHEMISTRY ORDERABLES Edited Performing Organization Address [facility] de Phone Number INTERFACE SYSTEM Refer to clinic/hospital department * (ABNORMAL) LIPID PANEL (09/05/2006 7:27 AM RNP) CHOLESTEROL 212(H) 100 - 199 mg/dL INTERFACE [facility] TRIGLYCERIDE 109 10 - 149 mg/dL [facility] HDL 53 40 - 59 mg/dL [facility] CHOL/HDL RATIO 4.0 2.0 - 5.0 INTER FACE SYSTEM LDL CALCULATED 137(H) <=99 mg/dL [facility] LIPID PANEL COMMENT See Below INTERFACE SYSTEM Comment: The adult ATP and pediatric NCEP classifications for lipids are available on the [facility] Intranet at: [email or web address] Select: Lab Policies and Procedures Select: Reference Ranges - Lipids 09/05/2006 7:27 AM RNP us Genaro Reynoso MD CHEMISTRY ORDERABLES Edited Performing Organization Address [facility] Co de Phone Number INTERFACE SYSTEM Refer to clinic/hospital department documented in this encounter Visit Diagnoses Diagnosis Other and unspecified hyperlipidemia- Primary documented in this encounter Care Teams Library Technology Instructor Relationship Specialty Start Date End Date Valery Walter MD NO ADDRESS ON FILE PCP - General 05/26/06 08/05/19 documented as of this encounter
--- OUTSIDE RECORDS SUMMARY | 2025-05-30 10:28 | XMS_ITS | Encounter Summary ---
Author Organization [facility] Address [address] [place] [address] Care Team Providers Care Power Brake Rebuilder Name Role Phone Valery Walter MD Primary Care Provider Unavail able Encounter Details Date Type Department Care Team (Late st Contact Info) Description 05/18/2005 Outpatient Historical [facility] Family Medicine [facility] [address] [address] [place] [address] Valery Walter MD NO ADDRESS ON FILE Social History Tobacco Use Types Packs/Day Years Used Date Smoking Tobacco: Never Assessed Comments Unknown Sex and Gender Information Value Date Recorded Sex Assigned at Not on file 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
--- OUTSIDE RECORDS SUMMARY | 2025-05-30 10:28 | XMS_ITS | Encounter Summary ---
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 PCP: Eve. ALTERNATIVE PHONE NUMBER: [phone] WHO CALLED: Patient called. PHARMACY NUMBER: [phone] SECTION 1: REQUESTED ACTION brian 09/08/06 at [...] the numbers at her next appointment. thanks. [facility] FINAL ACTION: opal 09/08/06 at 01:29 pm Called in script for the pt and also notified pt of the above info. Silvia Electronically Signed by: Silvia Hammond on Friday, September 08, 2006 documented in this encounter Plan of Treatment Not on file documented as of this encounter Visit Diagnoses Not on filedocumented in this encounter Care Teams Waiter/Waitress Formal Relationship Specialty Start Date End Date Valery Walter MD NO ADDRESS ON FILE PCP - General 05/26/06 08/05/19 documented as of this encounter
--- OUTSIDE RECORDS SUMMARY | 2025-05-30 10:28 | XMS_ITS | Encounter Summary ---
Author Organization [facility] Address [address] [place] [address] Care Team Providers Care Funeral Director Name Role Phone Valery Walter MD Primary Care Provider Unavail able Encounter Details Date Type Department Care Team (Latest Contact Info) Description 05/26/[address] 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 Gender Identity Not on file Sexual Orientation [...] ORDERABLES Final Res ult Performing Organization Address City/State/[facility] Co de Phone Number INTERFACE SYSTEM Refer to clinic/hospital department * ALT (05/26/2006 11:38 AM CDT) ALT 16 0 - 31 U/L INTERFACE SYSTEM 05/26/2006 11:3 8 AM CDT us Valery Walter MD CHEMISTRY ORDERABLES Final Res ult Performing Organization Address City/[facility] Co de Phone Number INTERFACE SYSTEM Refer to clinic/hospital department * AST (05/26/2006 11:38 AM CDT) AST 27 12 - 32 U/L INTERFAC E SYSTEM 05/26/2006 11:3 8 AM CDT us Valery Walter MD CHEMISTRY ORDERABLES Final Res ult Performing Organization Address [facility] de Phone Number INTERFACE SYSTEM Refer to clinic/hospital department documented in this encounter Visit Diagnoses Diagnosis Other and unspecified hyperlipidemia- Primary documented in this encounter Care Teams Funeral Director Relationship Specialty Start Date End Date Valery Walter MD NO ADDRESS ON FILE PCP - General 05/26/06 08/05/19 documented as of this encounter
[2025-05-30 12:54] LABS: Hematocrit 41.6 % (37.0-47.0); Hemoglobin 13.0 g/dL (12.0-15.0); Immature Granulocyte Percent A 0.4 % (0-0.5); Lymphocytes Absolute Auto 1.08 K/mm3 (0.9-3.2); Mean Corpuscular HGB Conc 31.3 g/dl (32-36); Mean Corpuscular Hemoglobin 27.9 pg (26-34); Mean Corpuscular Volume 89.3 fl (80-100); Nucleated Red Blood Cells Absolute Auto 0.000 K/mm3 (0.0-0.012); Nucleated Red Blood Cells Perc 0.0 % (0.0-0.2); Platelet Count Result 177 k/mm3 (150-375); Red Blood Count 4.66 M/mm3 (4.2-5.4); White Blood Count 4.9 K/mm3 (4.5-10.0)
[2025-05-30 13:28] LABS: Hemoglobin A1C 5.6 % (<5.7)
[2025-05-30 14:00] LABS: Alanine Aminotransferase 18 U/L (6-35); Albumin Level 4.2 g/dL (3.5-5.1); Alkaline Phosphatase 83 U/L (38-126); Anion Gap 4 mmol/L (4-12); Aspartate Amino Transferase 42 U/L (14-36); Bilirubin,Total 0.4 mg/dL (0.2-1.3); Blood Urea Nitrogen 18 mg/dL (7-17); Calcium 9.4 mg/dL (8.4-10.2); Carbon Dioxide 30 mmol/L (22-30); Chloride 105 mmol/L (98-107); Cholesterol 206 mg/dL (0-200); Estimated Glomerular Filt Rate > 60; Glucose 95 mg/dL (65-110); HDL Direct 78 mg/dL; Potassium 4.5 mmol/L (3.4-5.0); Sodium 139 mmol/L (137-145); Total Protein 7.2 g/dL (6.3-8.2); Triglycerides 66 mg/dL (<150)
[2025-05-30 14:23] LABS: Thyroid Stimulating Hormone Reflex 1.780 uIU/mL (0.465-4.68)
== END 2025-05-30 10:17 | disposition home or self-care (01) ==
LOC: ANHGOSHLAB 10:17
PROVIDERS: PCP Family Medicine; Visit Provider Nurse Practitioner Family
DX: E78.2 Mixed hyperlipidemia (principal); R73.03 Prediabetes; E55.9 Vitamin D deficiency, unspecified; Z13.29 Encounter for screening for other suspected endocrine disorder
CPT/HCPCS: 36415; 80053; 80061; 82306; 83036; 84443; 85025